=== PATIENT | female | born 1930 | race Caucasian/White ===

== ENCOUNTER 2017-04-05 10:12 | Inpatient (IN) | payer OTHER ==
[2017-04-05] VITALS (20 sets, daily range): BP systolic 91–138; BP diastolic 42–79; PULSE 56–76; TEMP 36.8–37.5; O2SAT 89–98; Ht 162.6 cm; Wt 73.0 kg
[~2017-04-05] VITALS: Ht 162.6 cm; Wt 73.0 kg
[2017-04-05] MEDS: PIPERACILLIN/TAZOBACTAM 4.5 GM/100ML D5W IV STA ×2 (10:14→11:01)
[2017-04-05] MEDS ORDERED: VANCOMYCIN 1GM/270ML NSS IV STA (10:14)
[2017-04-05] MEDS ORDERED: ALBUT/IPRATROP 3MG/0.5MG NEB 3 ML VIAL INH ONE (10:15)
[2017-04-05] MEDS ORDERED: MELATAB2 PO (10:27)
[2017-04-05] MEDS ORDERED: SIMV20TA2 PO (10:27)
[2017-04-05] MEDS ORDERED: ATEN-171 PO (10:27)
[2017-04-05] MEDS ORDERED: DOCU100C31 PO (10:27)
[2017-04-05] MEDS ORDERED: RAMI10CA PO (10:27)
[2017-04-05] MEDS ORDERED: ASPI81TA28 PO (10:27)
[2017-04-05] MEDS ORDERED: CALC-388 PO (10:27)
[2017-04-05] MEDS ORDERED: SENN-61 PO (10:27)
[2017-04-05] MEDS ORDERED: PRLSR20 PO (10:27)
[2017-04-05] MEDS ORDERED: CHOL400T5 PO (10:27)
[2017-04-05] MEDS ORDERED: ROPI4TAB3 PO (10:27)
[2017-04-05] MEDS ORDERED: COEN150C PO (10:27)
--- NOTE | 2017-04-05 10:39 | EMERGENCY ROOM VISIT NOTE ---
History Report prepared by Alan: Cristiana Multani Under the Supervision of: Dr. Freddie Melvin M.D. 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 The patient was brought to the ED by ambulance. Per EMS she was diagnosed with pneumonia 2 weeks ago and was placed on antibiotics by her PCP, Dr. Fu. She recently finished these antibiotics. This morning the patient was at home with , and she was very short of breath. They called the ambulance. EMS initially gave the patient a DuoNeb and started a second DuoNeb, but the patient had no improvement of her symptoms. Her O2 saturation was 80% and paramedics state that her fingers were blue. They placed the patient on CPAP and gave 125 mg of solu-Medrol IM. The patient's O2 saturation improved and is now 94% on CPAP. 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 A total of 10 systems reviewed and were otherwise negative. Past Medical & Surgical Medical Problems: (1) HX: breast cancer (2) Hypertension (3) Pneumonia (4) Sepsis Surgical Problems: (1) H/O bilateral mastectomy Family History Non-pertinent due to advanced age. Social History Smoking Status: Unknown if Ever Smoked Marital Status: Housing Status: lives with significant other Occupation Status: unemployed Current/Historical Medications Scheduled Aspirin (Aspirin Ec), 81 MG PO DAILY Atenolol/Chlorthalidone (Tenoretic 50 Mg/25 Mg), 1 TAB PO DAILY Calcium Carbonate-Vitamin D (Calcium + D3 600-200 mg-Unit), 1 TAB PO DAILY Cholecalciferol (Vitamin D), 400 MG PO DAILY Coenzyme Q10 (Ubidecarenone) (Co Q-10), 300 MG PO DAILY Docusate Sodium (Docusate Sodium), 100 MG PO BID Melatonin (Melatonin Maximum Strengt), 10 MG PO HS Omeprazole (Prilosec), 20 MG PO DAILY Ramipril (Ramipril), 10 MG PO DAILY Ropinirole (Requip), 4 MG PO TID Senna (Senokot), 2 TAB PO HS Simvastatin (Zocor), 20 MG PO QPM Allergies Coded Allergies: No Known Allergies (Verified , 04/05/17) Physical Exam Vital Signs Date Time Temp Pulse Resp B/P (MAP) Pulse Ox O2 Delivery O2 Flow Rate FiO2 04/05/17 11:28 83 39 75 04/05/17 11:25 38.2 04/05/17 11:23 108/75 04/05/17 11:22 81 36 69 04/05/17 11:17 73 35 97 04/05/17 11:12 79 31 92 04/05/17 11:07 75 33 93 04/05/17 11:02 62 27 82 04/05/17 10:57 65 37 04/05/17 10:52 67 31 84 04/05/17 10:47 52 29 93 04/05/17 10:42 52 29 59/38 93 04/05/17 10:37 56 92 100 04/05/17 10:37 46 24 85 04/05/17 10:36 56 34 92 BiPAP/CPAP 100 04/05/17 10:36 57/37 04/05/17 10:32 46 33 93 04/05/17 10:27 60 34 04/05/17 10:24 75/51 04/05/17 10:22 63 04/05/17 10:20 60 20 75/51 90 CPAP 100 04/05/17 10:20 90 CPAP 100 04/05/17 10:20 CPAP Physical Exam GENERAL: Patient is a healthy-appearing well-nourished 87 year old female. HEAD: Normocephalic atraumatic EYES: Ocular movements intact pupils equal and react to light OROPHARYNX mucous membranes are moist no exudates present no erythema or edema present NECK: Supple no nuchal rigidity CHEST: Good equal expansion LUNGS: Clear and equal to auscultation CARDIAC: Normal S1 and S2 ABDOMEN: Soft nontender no guarding BACK: No CVA tenderness EXTREMITIES: No pain upon palpation normal muscle strength in all groups no clubbing cyanosis or edema NEURO: Patient is following commands is answering questions appropriately. Alert and oriented x3 Cranial Nerves 2-12 grossly intact Medical Decision & Procedures ER Provider Diagnostic Interpretation: Radiology results as stated below per my review and radiologist interpretation: CHEST ONE VIEW PORTABLE CLINICAL HISTORY: Sepsis dyspnea COMPARISON STUDY: No previous studies for comparison. FINDINGS: Infiltrative process involving the right lower lobe. Minimal infiltrative change left lower lobe. Upper lungs are considered clear. Pleural reactive change of the pulmonary apices most likely chronic. IMPRESSION: 1. Right lower lobe infiltrate. 2. Minimal left lower lobe infiltrate. Electronically signed by: Peng Menard M.D. 04/05/2017 10:36 AM Dictated Date/Time: 04/05/2017 10:33 AM Laboratory Results 04/05/17 10:55 Red Blood Count 3.88, Mean Corpuscular Volume 80.2, Mean Corpuscular Hemoglobin 25.8, Mean Corpuscular Hemoglobin Concent 32.2, Mean Platelet Volume 10.3, Neutrophils (%) (Auto) 69.2, Lymphocytes (%) (Auto) 28.2, Monocytes (%) (Auto) 1.7, Eosinophils (%) (Auto) 0.9, Basophils (%) (Auto) 0.0, Neutrophils # (Auto) 1.62, Lymphocytes # (Auto) 0.66, Monocytes # (Auto) 0.04, Eosinophils # (Auto) 0.02, Basophils # (Auto) 0.00 04/05/17 10:55 Test 04/05/17 10:55 04/05/17 11:09 White Blood Count 2.34 K/uL (4.8-10.8) Red Blood Count 3.88 M/uL (4.2-5.4) Hemoglobin 10.0 g/dL (12.0-16.0) Hematocrit 31.1 % (37-47) Mean Corpuscular Volume 80.2 fL (80-100) Mean Corpuscular Hemoglobin 25.8 pg (25-34) Mean Corpuscular Hemoglobin Concent 32.2 g/dl (32-36) Platelet Count 171 K/uL (130-400) Mean Platelet Volume 10.3 fL (7.4-10.4) Neutrophils (%) (Auto) 69.2 % Lymphocytes (%) (Auto) 28.2 % Monocytes (%) (Auto) 1.7 % Eosinophils (%) (Auto) 0.9 % Basophils (%) (Auto) 0.0 % Neutrophils # (Auto) 1.62 K/uL (1.4-6.5) Lymphocytes # (Auto) 0.66 K/uL (1.2-3.4) Monocytes # (Auto) 0.04 K/uL (0.11-0.59) Eosinophils # (Auto) 0.02 K/uL (0-0.5) Basophils # (Auto) 0.00 K/uL (0-0.2) RDW Standard Deviation 47.6 fL (36.4-46.3) RDW Coefficient of Variation 16.1 % (11.5-14.5) Immature Granulocyte % (Auto) 0.0 % Immature Granulocyte # (Auto) 0.00 K/uL (0.00-0.02) Prothrombin Time 14.3 SECONDS (9.0-12.0) Prothromb Time International Ratio 1.3 (0.9-1.1) Activated Partial Thromboplast Time 32.1 SECONDS (21.0-31.0) Partial Thromboplastin Ratio 1.2 Anion Gap 15.0 mmol/L (3-11) Est Creatinine Clear Calc Drug Dose 12.5 ml/min Estimated GFR () 14.5 Estimated GFR (Non- 12.5 BUN/Creatinine Ratio 16.8 (10-20) Calcium Level 8.7 mg/dl (8.5-10.1) Total Bilirubin 0.4 mg/dl (0.2-1) Aspartate Amino Transf (AST/SGOT) 21 U/L (15-37) Alanine Aminotransferase (ALT/SGPT) 20 U/L (12-78) Alkaline Phosphatase 44 U/L (45-117) Total Creatine Kinase 141 U/L (26-192) Creatine Kinase MB 3.5 ng/ml (0.5-3.6) Creatine Kinase MB Ratio 2.5 (0-3.0) Total Protein 5.7 gm/dl (6.4-8.2) Albumin 2.5 gm/dl (3.4-5.0) Globulin 3.2 gm/dl (2.5-4.0) Albumin/Globulin Ratio 0.8 (0.9-2) Arterial Blood pH 7.37 (7.35-7.45) Arterial Blood Partial Pressure CO2 27 mmHg (35-46) Arterial Blood Partial Pressure O2 92 mm/Hg (80-95) Arterial Blood HCO3 15 mmol/L (19-24) Arterial Blood Oxygen Saturation 95.7 % (90-95) Arterial Blood Base Excess -9.0 mEq/L (-9-1.8) Arterial Blood Gas Delivery 08/04 Kev Test POS (POS) Labs reviewed by ED physician. Medications Administered Medications (Trade) Dose Ordered Sig/[place] Route Start Time Stop Time Status Last Admin Dose Admin Piperacillin Sod/ Tazobactam Sod (Zosyn Iv) 4.5 gm ONE STAT IV 04/05/17 10:14 04/05/17 10:17 DC 04/05/17 10:14 4.5 GM Vancomycin HCl (Vancomycin 1gm/ 270ml Nss) 1 gm ONE STAT IV 04/05/17 10:14 04/05/17 10:17 DC 04/05/17 11:04 1 GM Levofloxacin (Levaquin / D5W) 750 mg ONE STAT IV 04/05/17 10:14 04/05/17 10:17 DC 04/05/17 10:58 750 MG Albuterol/ Ipratropium (Duoneb) 12 ml ONE ONCE INH 04/05/17 10:15 04/05/17 10:17 DC 04/05/17 10:35 12 ML Sodium Chloride 1,000 ml @ 999 mls/hr ONE ONCE IV 04/05/17 10:54 04/05/17 11:54 DC 04/05/17 10:55 999 MLS/HR Norepinephrine Bitartrate (Levophed Inj) 4 mg STK-MED ONCE .ROUTE 04/05/17 10:57 04/05/17 17:03 DC 04/05/17 11:04 4 MG Sodium Chloride 1,000 ml @ 999 mls/hr Q1H1M STAT IV 04/05/17 11:07 04/05/17 12:07 DC 04/05/17 11:07 999 MLS/HR Heparin Sodium (Porcine) (Heparin Sq 5000 Unit/0.5ml) 5,000 unit Q12H SQ 04/05/17 11:30 05/05/17 11:29 04/05/17 11:30 5,000 UNIT Procedure Central Venous Catheter Indication: Hypotension Catheter type: Arrow Triple Lumen Location: Right femoral area Verbal consent was obtained after the risks and benefits were explained, including but not limited to pneumothorax, hemothorax, vessel injury, bleeding, scarring, infection, pain, and bone/joint/nerve damage. At this time, the risks of the procedure are less than the risks of NOT performing the procedure. A time out was taken and the correct patient and site identified. The patient was placed in the supine position and the skin was prepped in the standard fashion with chlorhexidine and full sterile drapes applied. The proper landmarks were identified with ultrasound, anesthetized with 1% lidocaine without epinephrine, and the needle was inserted through the skin in the standard fashion. The needle was carefully advanced into blood vessel lumen under ultrasound guidance. The guidewire was placed uneventfully. The vessel is dilated and the catheter was placed. It was sutured into position. There was good blood return from all ports. The patient tolerated the procedure well and there were no complications. Post procedure x-ray was normal. ECG Indication: SOB/dyspnea Rate (beats per minute): 55 Rhythm: junctional Findings: PVC, no acute ischemic change, other (old septal infarct) Comparison ECG Date: no prior available ED Course 1007: Past medical records reviewed. The patient was evaluated in room B1. A complete history and physical examination was performed. A code sepsis was called prior to the patient's arrival in the ED. 1014: Levofloxacin 750 mg IV, Vancomycin HCl 1 gm IV, Zosyn 4.5 gm IV 1015: DuoNeb 12 ml INH 1029: I placed a central line. Please see the procedure note for further details. 1054: NSS 1000 ml @ 999 mls/hr IV 1107: 238 ml @ 999 mls/hr IV, NSS 1000 ml @ 999 mls/hr IV 1114: I reassessed the patient at this time. She is doing well. I discussed the results and treatment plan with the patient. I answered all pertaining questions that she had. She expressed understanding and verbalized agreement. 1121: I spoke with Dr. Bui. We discussed the patient's results and treatment plan. The patient will be evaluated by the [facility] for further management. She will be moved to the ICU. Medical Decision Etiologies such as infections, reactive airway disease, pneumonia, pneumothorax , COPD, CHF, cardiac ischemia, pulmonary embolism, musculoskeletal, gastrointestinal, as well as others were entertained. Medication Reconciliation: I attest that I have personally reviewed the patient' s current medication list. Blood Pressure Screening: The patient was found to be hypotensive and will be followed closely in the hospital. This is an 87-year-old female who presents emergency department hypoxic. The patient is requiring BiPAP upon arrival. Her creatinine is also grossly elevated though I do not have a previous creatinine to fall back on. Based on the patient's hypotension and tachycardia a sepsis alert was initiated. Due to the patient's bilateral meniscectomies a central line was placed in the right femoral area. She was also pancultured and started on antibiotics. I did discuss the case with both the ICU as well as the medicine service who agreed to admit the patient. Patient and family were in agreement with the treatment plan. Consults Time Called: 1118 Consulting Physician: Dr. Bui Returned Call: [address] Bui. We discussed the patient's results and treatment plan. The patient will be evaluated by the [facility] for further management. She will be moved to the ICU. Impression Primary Impression: Respiratory failure Critical Care I have personally spent greater than 90 minutes of critical care time in the direct management of this patient. This includes bedside care, interpretation of diagnostic studies, and testing, discussion with consultants, patient, and family members, and other required patient management activities. This 90 minutes is in excess of all separately billable procedures. Scribe Attestation The scribe's documentation has been prepared under my direction and personally reviewed by me in its entirety. I confirm that the note above accurately reflects all work, treatment, procedures, and medical decision making performed by me. Departure Information Dispostion Being Evaluated By Hospitalist Problem Qualifiers Primary Impression: Respiratory failure Chronicity: acute Respiratory failure complication: hypercapnia Qualified Codes: J96.02 - Acute respiratory failure with hypercapnia
[2017-04-05] MEDS ORDERED: SODIUM CHLORIDE 0.9% 1000ML 1,000 ML IV ONE (10:54)
[2017-04-05] MEDS ORDERED: NOREPINEPHRINE BITARTRATE 1 MG/ML 4 ML VIAL ONE (10:57)
[2017-04-05] MEDS: LEVAQUIN 750MG / 150ML D5W IV STA ×2 (10:58→11:05)
[2017-04-05] MEDS ORDERED: SODIUM CHLORIDE 0.9% 1000ML 1,000 ML IV STA (11:07)
[2017-04-05] MEDS ORDERED: SODIUM CHLORIDE 0.9% IV STA (11:07)
[2017-04-05 11:08] LABS: COMPLETE YES; EOS % 0.9 %; HEMATOCRIT 31.1 % (37-47); LYMPH % 28.2 %; LYMPH ABS # 0.66 K/uL (1.2-3.4); MEAN CELL VOLUME 80.2 fL (80-100); MEAN CORPUSCULAR HEMOGLOBIN 25.8 pg (25-34); MEAN CORPUSCULAR HGB CONC 32.2 g/dl (32-36); MEAN PLATELET VOLUME 10.3 fL (7.4-10.4); MONO % 1.7 %; NEUT % 69.2 %; PLATELET COUNT 171 K/uL (130-400); RED BLOOD COUNT 3.88 M/uL (4.2-5.4); WHITE BLOOD COUNT 2.34 K/uL (4.8-10.8)
[2017-04-05] MEDS ORDERED: NOREPINEPHRINE BIT INJ 4 MG in DEXTROSE 5% 250ML 250 ML IV ONE (11:14)
[2017-04-05 11:16] LABS: INR 1.3 (0.9-1.1); PARTIAL THROMBOPLASTIN RATIO 1.2; PROTHROMBIN TIME (PATIENT) 14.3 SECONDS (9.0-12.0)
[2017-04-05 11:20] LABS: ALLEN TEST POS (POS); ARTERIAL BLD GAS O2 SATURATION 95.7 % (90-95); ARTERIAL BLOOD GAS HCO3 15 mmol/L (19-24); ARTERIAL BLOOD GAS PO2 92 mm/Hg (80-95); ARTERIAL BLOOD GAS pH 7.37 (7.35-7.45)
[2017-04-05 11:25] LABS: BUN/CREATININE RATIO 16.8 (10-20); CALCIUM 8.7 mg/dl (8.5-10.1); CREATININE 3.2 mg/dl (0.60-1.20); POTASSIUM 3.7 mmol/L (3.5-5.1)
[2017-04-05] MEDS ORDERED: NOREPINEPHRINE BIT INJ 8 MG in DEXTROSE 5% 500ML 500 ML IV STA (11:25)
[2017-04-05] MEDS ORDERED: NOREPINEPHRINE BIT INJ 8 MG in DEXTROSE 5% 500ML 500 ML IV PRN (11:30)
[2017-04-05] MEDS ORDERED: NITROGLYCERIN 0.4 MG SL PER TAB CHARGE SL PRN (11:30)
[2017-04-05] MEDS: HEPARIN SOD 5000 UNIT/0.5 ML CARP SQ SCH ×2 (11:30→23:31)
[2017-04-05] MEDS ORDERED: ACETAMINOPHEN 325 MG TAB PO PRN (11:30)
[2017-04-05 11:36] LABS: ALB/GLOB RATIO 0.8 (0.9-2); CKMB/CK RATIO 2.5 (0-3.0)
--- NOTE | 2017-04-05 12:12 | Critical Care Consultation ---
Critical Care Consultation Date of Consultation: Apr 05, 2017. Attending Physician: Reason for Consultation: ICU Management - shortness of breath, sepsis History of Present Illness Mrs Goodman is an 87 yo F with history of breast cancer s/p mastectomy, who was recently on antibiotics over the last two weeks for a pneumonia as an outpatient. She was doing well at home, where she lives alone in [place]. Throughout the daytime yesterday she was out shopping in [place] with her sister and was slightly more fatigued than usual. Last night where she was coughing more than usual and had to sleep in her chair overnight. Her family came to visit her this morning and noticed she seemed more unwell so called the ambulance. In the ED, she was found to have a bilateral pneumonia. She was placed on BiPAP and saturating around 93%. She is able to speak full sentences. She denies any pain and feels her BiPAP mask is annoying. She wants to go to sleep. She clearly stated she would NOT want to be intubated nor would she want cardiac resuscitation. Past Medical/Surgical History Medical Problems: (1) HX: breast cancer (2) Hypertension (3) Pneumonia (4) Sepsis Surgical Problems: (1) H/O bilateral mastectomy Family History No pertinent FHx Social History Smoking Status: Unknown if Ever Smoked Marital Status: ( ) Housing Status: lives alone Occupation Status: unemployed Allergies Coded Allergies: No Known Allergies (Verified , 04/05/17) Home Medications Scheduled Aspirin (Aspirin Ec), 81 MG PO DAILY Atenolol/Chlorthalidone (Tenoretic 50 Mg/25 Mg), 1 TAB PO DAILY Calcium Carbonate-Vitamin D (Calcium + D3 600-200 mg-Unit), 1 TAB PO DAILY Cholecalciferol (Vitamin D), 400 MG PO DAILY Coenzyme Q10 (Ubidecarenone) (Co Q-10), 300 MG PO DAILY Docusate Sodium (Docusate Sodium), 100 MG PO BID Melatonin (Melatonin Maximum Strengt), 10 MG PO HS Omeprazole (Prilosec), 20 MG PO DAILY Ramipril (Ramipril), 10 MG PO DAILY Ropinirole (Requip), 4 MG PO TID Senna (Senokot), 2 TAB PO HS Simvastatin (Zocor), 20 MG PO QPM Current Inpatient Medications Current Inpatient Medications Medications (Trade) Dose Ordered Sig/[place] Route Start Time Stop Time Status Last Admin Dose Admin Norepinephrine Bitartrate 8 mg/ Dextrose 508 ml @ 0 mls/hr Q0M PRN IV 04/05/17 11:30 05/05/17 11:29 Aspirin (Ecotrin Tab) 81 mg DAILY PO 04/06/17 09:00 05/06/17 08:59 UNV Cholecalciferol (Vitamin D Tab) 400 inter.unit DAILY PO 04/06/17 09:00 05/06/17 08:59 UNV Calcium/Vitamin D (Caltrate Plus Tab) 1 tab DAILY PO 04/06/17 09:00 05/06/17 08:59 UNV Heparin Sodium (Porcine) (Heparin Sq 5000 Unit/0.5ml) 5,000 unit Q12H SQ 04/05/17 11:30 05/05/17 11:29 UNV Sodium Chloride 1,000 ml @ 100 mls/hr Q10H IV 04/05/17 11:25 05/05/17 11:24 UNV Acetaminophen (Tylenol Tab) 650 mg Q4H PRN PO 04/05/17 11:30 05/05/17 11:29 Nitroglycerin (Nitrostat Tab) 0.4 mg UD PRN SL 04/05/17 11:30 05/05/17 11:29 Pantoprazole Sodium 40 mg/ Syringe 10 ml @ 5 mls/min DAILY IV 04/06/17 09:00 05/06/17 08:59 UNV Norepinephrine Bitartrate 8 mg/ Dextrose 508 ml @ 0 mls/hr Q0M STAT IV 04/05/17 11:25 04/05/17 11:26 UNV Review of Systems Constitutional: + fever, + weakness, + fatigue, No chills, No sweats Eyes: No worsening of vision ENT: No hearing loss Respiratory: + cough, + shortness of breath, + dyspnea on exertion, + dyspnea at rest, No sputum, No wheezing, No hemoptysis Cardiovascular: No chest pain Abdomen: No pain, No nausea, No vomiting, No diarrhea, No constipation Musculoskeletal: No joint pain, No muscle pain, No calf pain Genitourinary - Female: No dysuria Neurologic: No memory loss Psychiatric: No depression symptoms Endocrine: No fatigue Hematologic / Lymphatic: No abnormal bleeding/bruising Integumentary: No rash Allergic / Immunologic: No environmental allergies Physical Exam Date Time Temp Pulse Resp B/P (MAP) Pulse Ox O2 Delivery O2 Flow Rate FiO2 04/05/17 12:03 84 29 92/77 04/05/17 11:58 87 36 04/05/17 11:53 92 28 128/95 04/05/17 11:48 88 34 04/05/17 11:43 85 32 120/74 04/05/17 11:40 62/40 04/05/17 11:38 88 34 93 04/05/17 11:33 82 31 92 04/05/17 11:28 83 39 75 04/05/17 11:25 38.2 04/05/17 11:23 108/75 04/05/17 11:22 81 36 69 04/05/17 11:17 73 35 97 04/05/17 11:12 79 31 92 04/05/17 11:07 75 33 93 04/05/17 11:02 62 27 82 04/05/17 10:57 65 37 04/05/17 10:52 67 31 84 04/05/17 10:47 52 29 93 04/05/17 10:42 52 29 59/38 93 04/05/17 10:37 56 92 100 04/05/17 10:37 46 24 85 04/05/17 10:36 56 34 92 BiPAP/CPAP 100 04/05/17 10:36 57/37 04/05/17 10:32 46 33 93 04/05/17 10:27 60 34 04/05/17 10:24 75/51 04/05/17 10:22 63 04/05/17 10:20 60 20 75/51 90 CPAP 100 04/05/17 10:20 90 CPAP 100 04/05/17 10:20 CPAP GENERAL: Awake, alert, well-appearing, in mild distress, wearing BiPAP mask HENT: Normocephalic, atraumatic. Oropharynx unremarkable. EYES: Normal conjunctiva. Sclera non-icteric. NECK: Supple. No nuchal rigidity. FROM. No JVD. RESPIRATORY: Unable to take deep breaths, decreased breath sounds noted at bases CARDIAC: Regular rate, normal rhythm. Extremities warm and well perfused. Pulses equal. ABDOMEN: Soft, non-distended. No tenderness to palpation. No rebound or guarding. No masses. RECTAL: Deferred. MUSCULOSKELETAL: Chest examination reveals no tenderness. LOWER EXTREMITIES: Calves are equal size bilaterally and non-tender. No edema. No discoloration. NEURO: Normal sensorium. No sensory or motor deficits noted. SKIN: No rash or jaundice noted. Laboratory Results Last 24 Hours Test 04/05/17 10:55 04/05/17 11:09 04/05/17 11:34 04/05/17 11:53 White Blood Count 2.34 K/uL Red Blood Count 3.88 M/uL Hemoglobin 10.0 g/dL Hematocrit 31.1 % Mean Corpuscular Volume 80.2 fL Mean Corpuscular Hemoglobin 25.8 pg Mean Corpuscular Hemoglobin Concent 32.2 g/dl Platelet Count 171 K/uL Mean Platelet Volume 10.3 fL Neutrophils (%) (Auto) 69.2 % Lymphocytes (%) (Auto) 28.2 % Monocytes (%) (Auto) 1.7 % Eosinophils (%) (Auto) 0.9 % Basophils (%) (Auto) 0.0 % Neutrophils # (Auto) 1.62 K/uL Lymphocytes # (Auto) 0.66 K/uL Monocytes # (Auto) 0.04 K/uL Eosinophils # (Auto) 0.02 K/uL Basophils # (Auto) 0.00 K/uL RDW Standard Deviation 47.6 fL RDW Coefficient of Variation 16.1 % Immature Granulocyte % (Auto) 0.0 % Immature Granulocyte # (Auto) 0.00 K/uL Prothrombin Time 14.3 SECONDS Prothromb Time International Ratio 1.3 Activated Partial Thromboplast Time 32.1 SECONDS Partial Thromboplastin Ratio 1.2 Sodium Level 141 mmol/L Potassium Level 3.7 mmol/L Chloride Level 107 mmol/L Carbon Dioxide Level 19 mmol/L Anion Gap 15.0 mmol/L Blood Urea Nitrogen 54 mg/dl Creatinine 3.20 mg/dl Est Creatinine Clear Calc Drug Dose 12.5 ml/min Estimated GFR () 14.5 Estimated GFR (Non- 12.5 BUN/Creatinine Ratio 16.8 Random Glucose 93 mg/dl Calcium Level 8.7 mg/dl Total Bilirubin 0.4 mg/dl Aspartate Amino Transf (AST/SGOT) 21 U/L Alanine Aminotransferase (ALT/SGPT) 20 U/L Alkaline Phosphatase 44 U/L Total Creatine Kinase 141 U/L Creatine Kinase MB 3.5 ng/ml Creatine Kinase MB Ratio 2.5 Troponin I 0.279 ng/ml Total Protein 5.7 gm/dl Albumin 2.5 gm/dl Globulin 3.2 gm/dl Albumin/Globulin Ratio 0.8 Arterial Blood pH 7.37 Arterial Blood Partial Pressure CO2 27 mmHg Arterial Blood Partial Pressure O2 92 mm/Hg Arterial Blood HCO3 15 mmol/L Arterial Blood Oxygen Saturation 95.7 % Arterial Blood Base Excess -9.0 mEq/L Arterial Blood Gas Delivery 08/04 Kev Test POS Bedside Lactic Acid Venous 5.50 mmol/L Test 04/05/17 11:54 Diagnostic Results CHEST ONE VIEW PORTABLE CLINICAL HISTORY: Sepsis dyspnea COMPARISON STUDY: No previous studies for comparison. FINDINGS: Infiltrative process involving the right lower lobe. Minimal infiltrative change left lower lobe. Upper lungs are considered clear. Pleural reactive change of the pulmonary apices most likely chronic. IMPRESSION: 1. Right lower lobe infiltrate. 2. Minimal left lower lobe infiltrate. Assessment & Plan 87 yo F with sepsis from bilateral pneumonia, with failed outpatient treatment. NEURO: Mentating well, not on any sedatives CVS: Is on Levophed, will change to phenylephrine since she has aortic stenosis, and increase this slowly Femoral line placed by Dr Melvin 04/05/17 - we will change this to a PICC line, consent obtained Trop 0.279, will continue to trend q6h Echo ordered GI: Advance diet as tolerated once respiratory status improves RENAL: Had IV fluid resuscitation on arrival per sepsis protocol Insert ríos, monitor I&Os Normosol 100mL/hour RESP: Not comfortable with BiPAP - will change to face mask, aim for sats > 92% Abx started after cultures obtained Obtain sputum culture if possible Will check procalcitonin ID: Blood cx obtained Urine culture pending Started on Vanc, Zosyn, and Levaquin in ED - Will change Zosyn to Rocephin ENDO: No hx of DM BSG q6h CODE STATUS: DNR/DNI Resident Physician Supervision Note: Dr. Jensen was resident physician during care of patient. I separately evaluated patient and did history and exam. I discussed the case with the resident and generally agree with the findings and plan. Initial limited beside ECHO by me revealed TAPSE 21, LVOT: 1.9, concern for hypoactive left ventricle, started vasopressors. Called by cardiology, concerned for global depressed LV function, preserved RV function and possible aortic calcification and probably mild stenosis, cannot completely exclude vegetation, however, less likely. Changed to phenylephrine for increased PVR and reflex bradycardia. ABX for pneumonia. Stopped zosyn and change to rocephin in setting of IRA and no need for double pseudomonas coverage. Had discussion with patient, she does not want to under go heroic measure of CPR or intubation. I have personally spent 65 minutes of critical care time in the direct management of this patient. This is a life/limb threatening event. This includes time spent evaluating patient, direct bedside care, chart review, placing orders, interpretation of diagnostic studies, discussion with consultants, patient, and family members, as well as other required patient management activities. This time is exclusive of all separately billable procedures, and teaching time and separate from and in addition to any other critical care service time. Documented By: Aldo Montes De Oca DO Resident Tracking Resident Involvement: Resident Care Provided Care Provided: Adult Hospital Medicine
--- NOTE | 2017-04-05 12:15 | History and Physical ---
History & Physical Date & Time of Service: Apr 05, 2017 at 11:55 Chief Complaint: Respiratory Distress Primary Care Physician: Minh Zhang M.D. History of Present Illness Source: patient, family (nephew) The patient is a 87 year old female with PMH as below, who presents to the Emergency Room with c/o worsening cough/SOB x 24 hours. Patient at her baseline- lives alone, does ADLs independently, walks without assistive device, drives. Was diagnosed with pneumonia 1 month ago, for which she was treated with antibiotics x 10 days. Symptoms did not improve much, especially cough-unable to bring up sputum. Yesterday she was out with her cousin for shopping, when she felt excessive shaking and tired. Had to come back home -didnt eat much, had a difficult night. Today AM family went to visit her- was not doing well- SOB +, thus brought her to ER. Did have some chest pain yesterday. No leg swelling, fever documented, abdominal pain, vomiting, diarrhea, nausea, burning mictuirtion, urinary frequency, headaches, localized weakness. In ED, she was in respiratory distress. EMS gave duoneb x 2 with no improvement in SOB. SaO2 80% and her fingers were blue per EMS. Placed on CPAP, received IV solumedrol 125 mg IM. Currently on my evaluation, BIPAP + 93% SaO2, awake and able to communicate. BP 75/51, Pulse - 81, Temp 38.2, Lactic acid 5.5, Anion gap 15, Creatinine 3.20, Trop 0.2. CXR- B/L Right > left lower lobe pneumonia. Receiving 2nd litre of IV NS, on IV Levophed. Received IV Zosyn, receiving IV Vancomycin, Levofloxacin. Will admit her to ICU for sepsis/septic shock secondary to B/L Pneumonia . Past Medical/Surgical History Medical Problems: (1) HX: breast cancer Status: Resolved (2) Hypertension Status: Chronic Surgical Problems: (1) H/O bilateral mastectomy Status: Resolved Social History Smoking Status: Unknown if Ever Smoked Marital Status: Occupational Status: unemployed Multi-Drug Resistant Organisms History of MDRO: No Allergies Coded Allergies: No Known Allergies (Verified , 04/05/17) Home Medications Scheduled Aspirin (Aspirin Ec), 81 MG PO DAILY Atenolol/Chlorthalidone (Tenoretic 50 Mg/25 Mg), 1 TAB PO DAILY Calcium Carbonate-Vitamin D (Calcium + D3 600-200 mg-Unit), 1 TAB PO DAILY Cholecalciferol (Vitamin D), 400 MG PO DAILY Coenzyme Q10 (Ubidecarenone) (Co Q-10), 300 MG PO DAILY Docusate Sodium (Docusate Sodium), 100 MG PO BID Melatonin (Melatonin Maximum Strengt), 10 MG PO HS Omeprazole (Prilosec), 20 MG PO DAILY Ramipril (Ramipril), 10 MG PO DAILY Ropinirole (Requip), 4 MG PO TID Senna (Senokot), 2 TAB PO HS Simvastatin (Zocor), 20 MG PO QPM Review of Systems Constitutional: + fever, + chills, + fatigue Eyes: No worsening of vision, No eye pain ENT: No hearing loss, No nasal symptoms Respiratory: + cough, + shortness of breath, + dyspnea at rest, No wheezing, No hemoptysis Cardiovascular: No chest pain, No edema, No palpitations Abdomen: No pain, No nausea, No vomiting, No diarrhea, No constipation, No GI bleeding Genitourinary - Female: No dysuria, No urinary frequency, No hematuria Neurologic: No paralysis, No weakness Endocrine: + fatigue Integumentary: No rash Physical Exam Vital Signs Date Time Temp Pulse Resp B/P (MAP) Pulse Ox O2 Delivery O2 Flow Rate FiO2 04/05/17 11:25 38.2 04/05/17 11:23 108/75 04/05/17 11:22 81 36 69 04/05/17 11:17 73 35 97 04/05/17 11:12 79 31 92 04/05/17 11:07 75 33 93 04/05/17 11:02 62 27 82 04/05/17 10:57 65 37 04/05/17 10:52 67 31 84 04/05/17 10:47 52 29 93 04/05/17 10:42 52 29 59/38 93 04/05/17 10:37 56 92 100 04/05/17 10:37 46 24 85 04/05/17 10:36 56 34 92 BiPAP/CPAP 100 04/05/17 10:36 57/37 04/05/17 10:32 46 33 93 04/05/17 10:27 60 34 04/05/17 10:24 75/51 04/05/17 10:22 63 04/05/17 10:20 60 20 75/51 90 CPAP 100 04/05/17 10:20 90 CPAP 100 04/05/17 10:20 CPAP General Appearance: + mild distress (on BIPAP) Head: normocephalic, atraumatic Eyes: PERRL ENT: hearing grossly normal Neck: no JVD Respiratory/Chest: chest non-tender, no accessory muscle use, + respiratory distress, + decreased breath sounds, + rhonchi, + pertinent finding (s/p mastectomy) Cardiovascular: regular rate, rhythm, no edema, no murmur Abdomen/GI: normal bowel sounds, non tender, soft, no pulsatile mass Extremities/Musculoskelatal: normal inspection, no pedal edema Neurologic/Psych: no motor/sensory deficits, + pertinent finding (awake, oriented x 2, ) Diagnostics Laboratory Results Results Past 24 Hours Test 04/05/17 10:55 04/05/17 11:09 04/05/17 11:31 04/05/17 11:34 Range/Units White Blood Count 2.34 4.8-10.8 K/uL Red Blood Count 3.88 4.2-5.4 M/uL Hemoglobin 10.0 12.0-16.0 g/dL Hematocrit 31.1 37-47 % Mean Corpuscular Volume 80.2 80-100 fL Mean Corpuscular Hemoglobin 25.8 25-34 pg Mean Corpuscular Hemoglobin Concent 32.2 32-36 g/dl Platelet Count 171 130-400 K/uL Mean Platelet Volume 10.3 7.4-10.4 fL Neutrophils (%) (Auto) 69.2 % Lymphocytes (%) (Auto) 28.2 % Monocytes (%) (Auto) 1.7 % Eosinophils (%) (Auto) 0.9 % Basophils (%) (Auto) 0.0 % Neutrophils # (Auto) 1.62 1.4-6.5 K/uL Lymphocytes # (Auto) 0.66 1.2-3.4 K/uL Monocytes # (Auto) 0.04 0.11-0.59 K/uL Eosinophils # (Auto) 0.02 0-0.5 K/uL Basophils # (Auto) 0.00 0-0.2 K/uL RDW Standard Deviation 47.6 36.4-46.3 fL RDW Coefficient of Variation 16.1 11.5-14.5 % Immature Granulocyte % (Auto) 0.0 % Immature Granulocyte # (Auto) 0.00 0.00-0.02 K/uL Prothrombin Time 14.3 9.0-12.0 SECONDS Prothromb Time International Ratio 1.3 0.9-1.1 Activated Partial Thromboplast Time 32.1 21.0-31.0 SECONDS Partial Thromboplastin Ratio 1.2 Sodium Level 141 136-145 mmol/L Potassium Level 3.7 3.5-5.1 mmol/L Chloride Level 107 98-107 mmol/L Carbon Dioxide Level 19 21-32 mmol/L Anion Gap 15.0 3-11 mmol/L Blood Urea Nitrogen 54 7-18 mg/dl Creatinine 3.20 0.60-1.20 mg/dl Est Creatinine Clear Calc Drug Dose 12.5 ml/min Estimated GFR () 14.5 Estimated GFR (Non- 12.5 BUN/Creatinine Ratio 16.8 10-20 Random Glucose 93 70-99 mg/dl Calcium Level 8.7 8.5-10.1 mg/dl Total Bilirubin 0.4 0.2-1 mg/dl Aspartate Amino Transf (AST/SGOT) 21 15-37 U/L Alanine Aminotransferase (ALT/SGPT) 20 12-78 U/L Alkaline Phosphatase 44 45-117 U/L Total Creatine Kinase 141 26-192 U/L Creatine Kinase MB 3.5 0.5-3.6 ng/ml Creatine Kinase MB Ratio 2.5 0-3.0 Troponin I 0.279 0-0.045 ng/ml Total Protein 5.7 6.4-8.2 gm/dl Albumin 2.5 3.4-5.0 gm/dl Globulin 3.2 2.5-4.0 gm/dl Albumin/Globulin Ratio 0.8 0.9-2 Arterial Blood pH 7.37 7.35-7.45 Arterial Blood Partial Pressure CO2 27 35-46 mmHg Arterial Blood Partial Pressure O2 92 80-95 mm/Hg Arterial Blood HCO3 15 19-24 mmol/L Arterial Blood Oxygen Saturation 95.7 90-95 % Arterial Blood Base Excess -9.0 -9-1.8 mEq/L Arterial Blood Gas Delivery 10/5 Kev Test POS POS Bedside Lactic Acid Venous 5.50 0.90-1.70 mmol/L Microbiology Results 04/05/17 Blood Culture, Received Pending 04/05/17 Blood Culture, Received Pending Diagnostic Radiology CXR on 04/05/17 IMPRESSION: 1. Right lower lobe infiltrate. 2. Minimal left lower lobe infiltrate. EKG- Junctional rhythm with PVCs Impression Assessment and Plan Patient is a 87 year old F, lives independently, drives, able to take care of herself was diagnosed with pneumonia 1 month ago. Treated with antibiotic course x 10 days, but symptoms did not improve much. Was relatively still doing okay as was out shopping day before admission--> SOB worsened, had chills, worsening cough but unable to bring up sputum. Brought to ER, found to be hypotensive, respiratory distress on BIPAP, CXR- B/L pneumonia. Admitted for sepsis/septic shock secondary to B/L Pneumonia ASSESSMENT/PLAN: SEPSIS/SEPTIC SHOCK SECONDARY TO B/L (RT > LT) PNEUMONIA -Presented with hypotension BP in 70s, fever, respiratory distress requiring BIPAP, Lactic acid 5.5. Was treated with antibiotics x 10 days 2-3 weeks ago at PCP office, but symptoms not improving much. -IV NS- 2nd litre going on in ER. Continue at 100 cc/hour -IV Levophed- maintain MAP - > 65 -S/P IV Zosyn, Levofloxacin, Vancomycin in ED. Continue with these antibiotics -Work up- Blood culture, MRSA swab, Sputum culture, UA, urine culture -Account Manager on board -Will re evaluate with in 6 hours ACUTE HYPOXIC RESPIRATORY FAILURE Secondary to B/L pneumonia -Sao2 80% per EMS. -On BIPAP now -Monitor in ICU. Account Manager on board. IRA VS IRA ON CKD Baseline: not in EMR. Presented with creatinine of 3.20 -Likely secondary to sepsis -IVF -Monitor ELEVATED TROPONIN Likely demand ischemia in setting of Sepsis/septic shock/IRA -Trop 0.2, EKG- junctional rhythm with PVCS -Trend troponin , EKG , Echocardiogram HTN- Now in septic shock Hold home medication- Atenolol/Chlorthalidone, Ramipril -On levophed -Monitor HX OF BREAST CARCINOMA S/P MASTECTOMY In remission DYSLIPIDEMIA Hold Statin CODE STATUS DNR/DNI per patient DISPOSITION ICU care Account Manager evaluated patient as well. Discussed with Account Manager Discussed with family by bedside. Nephew POA Level of Care Critical Care Advanced Directives Existing Power of Bistro Server: Yes Resuscitation Status DO NOT RESUSCITATE VTE Prophylaxis VTE Risk Assessment Done? Y/N: Yes Risk Level: High Given or contraindicated: Unfractionated heparin SQ Social Service Consult >80 yr.& Lives Alone
[2017-04-05] MEDS ORDERED: SODIUM CHLORIDE 0.9% 1000ML 1,000 ML IV SCH (12:30)
[2017-04-05 12:35] LABS: URINE APPEARANCE CLOUDY (CLEAR); URINE BILIRUBIN NEG (NEG); URINE COLOR DK YELLOW; URINE EPITHELIAL CELL AUTO >30 /lpf (0-5); URINE NITRITE NEG (NEG); URINE SPECIFIC GRAVITY 1.023 (1.000-1.030); UROBILINOGEN NEG (NEG); ZZURINE CULT IF INDIC CATH NO
[2017-04-05] MEDS ORDERED: VANCOMYCIN CONSULT ACTIVE PRN (12:36)
[2017-04-05 12:44] LABS: MANUAL MICROSCOPIC REQUIRED? NO; REVIEW REQ? YES
[2017-04-05] MEDS ORDERED: LEVOFLOXACIN CONSULT ACTIVE PRN (12:45)
[2017-04-05] MEDS ORDERED: PIPERACILL/TAZOBAC CONSULT ACTIVE PRN (12:45)
[2017-04-05] MEDS ORDERED: VANCOMYCIN INJ 500 MG in SODIUM CHLORIDE 0.9% 100ML 100 ML IV ONE (14:00)
[2017-04-05 14:12] LABS: INFLUENZA A PCR Neg for Influ A (NEG); INFLUENZA B PCR Neg for Influ B (NEG)
--- NOTE | 2017-04-05 14:25 | Pharmacy Progress Note ---
Pharmacy Antibiotic Consult Date of Service: Apr 05, 2017. Pharmacy Dosing Scope Pharmacy is consulted to initiate Vancomycin IV dosing therapy, order appropriate labs and adjust drug dose/frequency. Subjective The patient is a 87 year old female admitted on Apr 05, 2017 at 11:30. Objective Height (Feet): 5 Height (Inches): 4.00 Weight (Kilograms): 74.600 Lab Results (24hrs): Item Value Date Time White Blood Count 2.34 K/uL L 04/05/17 1055 Neutrophils # (Auto) 1.62 K/uL 04/05/17 1055 Creatinine 3.20 mg/dl H 04/05/17 1055 Est Creatinine Clear Calc Drug Dose 12.5 ml/min 04/05/17 1055 Lactic Acid Level 5.5 mmol/L *H 04/05/17 1153 Bedside Lactic Acid Venous 5.50 mmol/L H 04/05/17 1134 Item Value Date Time Urine Color DK YELLOW 04/05/17 1205 Urine Appearance CLOUDY 04/05/17 1205 Urine pH 5.0 04/05/17 1205 Urine Specific [place] 1.023 04/05/17 1205 Urine Protein TRACE H 04/05/17 1205 Urine Glucose (UA) NEG 04/05/17 1205 Urine Ketones NEG 04/05/17 1205 Urine Occult Blood NEG 04/05/17 1205 Urine Nitrite NEG 04/05/17 1205 Urine Bilirubin NEG 04/05/17 1205 Urine Urobilinogen NEG 04/05/17 1205 Urine Leukocyte Esterase NEG 04/05/17 1205 Urine WBC (Auto) 0 /hpf 04/05/17 1205 Urine RBC (Auto) 0-4 /hpf 04/05/17 1205 Urine Hyaline Casts (Auto) 0 /lpf 04/05/17 1205 Urine Epithelial Cells (Auto) >30 /lpf H 04/05/17 1205 Urine Bacteria (Auto) NEG 04/05/17 1205 Urine Pathogenic Casts /lpf 04/05/17 1205 Micro Results: Item Value Date Time MRSA DNA Surveillance Screen - Final Complete 04/05/17 1154 Nasal Specimen Negative for MRSA by DNA Probe Blood Culture Received 04/05/17 1055 Blood Pending Blood Culture Received 04/05/17 1021 Blood Pending Item Value Date Time Influenza Type A Antigen Neg for Influ A 04/05/17 1154 Influenza Type B Antigen Neg for Influ B 04/05/17 1154 Assessment & Plan ASSESSMENT: * Patient is an 87yo female admitted in respiratory distress. She was diagnosed with pna ~1 month ago and recently completed a 10-day course of antibiotics (unclear which abx). * On arrival: * WBC 2.34 (L), Temp 38.2, BP 75/51 --> 57/37, HR 60, RR 34, SCr 3.2, Lactic acid 5.5 * Patient received fluid boluses in ED and was initiated on Levophed for hypotension * Admitted to ICU for sepsis/septic shock / B/L pna PLAN: * Vancomycin * Loading dose: Vancomycin 1000 mg IV x1 dose in ED, plus additional 500mg IV x1 dose after admission (total of ~20mg/kg) * d/t degree of IRA, will not order further doses until vanc level evaluated in the am * Goal trough level estimate: between 15 - 20 mcg/mL for sepsis/pna. * Random level has been ordered for: 04/06/17 with AM labs * Zosyn * Zosyn 4.5gm IV x1 dose in ED (given over 30 minutes) then: * Zosyn 4.5gm IV q12h, extended 4-hr infusion -- for patients with CrCl less than 20mL/min; started ~8hr after initial dose given -- will adjust as renal function improves * Levaquin * Levaquin 750mg IV x1 dose in ED, then * Levaquin 500mg IV q48h, for CrCl 10-19mL/min -- will adjust as renal function improves Pharmacy will continue to follow and will adjust dose/frequency as necessary. Thank you
--- NOTE | 2017-04-05 15:53 | Progress Note ---
Progress Note Post Crystalloid Evaluation Date: Apr 05, 2017 Time: 15:50 Subjective Patient is doing better. More awake, alert, still on BIPAP. SOB has improved. Cough + No chest pain, fever, chills. BP has been stable on Levophed, IVF. Physical Exam Vital Signs: Vital Signs Date Time Temp Pulse Resp B/P (MAP) Pulse Ox O2 Delivery O2 Flow Rate FiO2 04/05/17 12:40 37.5 73 22 119/60 (79) 98 BiPAP 100 Lungs: chest non-tender, no accessory muscle use, + decreased breath sounds, + rhonchi Heart: regular rate, rhythm, no JVD Peripheral Pulse: Normal Capillary Refill: Normal (less than 2 seconds) Skin: Pallor Assessment & Plan Presence of: Septic Shock Patient has overall improved, BP improved, but still on levophed. 1. Sepsis/septic shock secondary to pneumonia- Continue with IVF, IV levophed, IV antibiotics. Follow up lactic acid 2. Acute hypoxic respiratory failure, sec to above, still on BIPAP 3. IRA secondary to above 4. Elevated trop secondary to demand ischemia Continue with ICU monitoring
[2017-04-05] MEDS: ALBUT/IPRATROP 3MG/0.5MG NEB 3 ML VIAL INH SCH ×2 (16:01→19:05)
--- NOTE | 2017-04-05 16:41 | ECHOCARDIOGRAM REPORT ---
*NOTICE TO RECEIVING LIBERTARIAN AGENCY This information is strictly Confidential and protected under [place] law. [place] law prohibits you from making any further disclosure of this information unless further disclosure is expressly permitted by the written consent of the person to whom it pertains or is authorized by law. A general authorization for the release of medical or other information is not sufficient for this purpose. Hospital accepts no responsibility if the information is made available to any other person, INCLUDING THE PATIENT. Interpretation Summary * Name: EDILBERTO DUFF Study Date: 04/05/2017 03:16 PM BP: 119/60 mmHg * Patient Location: ED HR: 73 * : 1930 (M/d/yyyy) Gender: Female Height: 64 in * Age: 87 yrs Ethnicity: [place] Weight: 164 lb * Ordering Physician: Sydni Bui. * Performed By: Cira Mercado * * Reason For Study: SEPTIC SHOCK/ ELEVATED TROP * BSA: 1.8 m2 * The study was technically adequate. * -- Conclusions -- * There is no prior study available for comparison. * The left ventricle is normal in size. * There is moderate to severe global hypokinesis of the left ventricle. * The LV Ejection Fraction = 25-30%. * The right ventricle is normal in size and function. * The aortic valve is trileaflet. * Mild aortic regurgitation. * The non coronary cusp of the aortic valve is thickened and calcified with resultant decreased excursion. Appearance favors sclerosis/ calcification however the presence of a vegetation cannot be excluded. * Recommend clinical correlation regarding suspected source of sepsis. * Results were reviewed in person with Dr Montes De Oca on 04/05/17 4:45 pm. Procedure Details * A complete two-dimensional transthoracic echocardiogram was performed (2D, M-mode, Doppler and color flow Doppler). * There were technical limitations due to patient'ssupine positioning while on mechanical ventilation Left Ventricle * The left ventricle is normal in size. * There is mild concentric left ventricular hypertrophy. * Left ventricular systolic function is moderate to severely reduced. * Ejection Fraction = 25-30%. * There is moderate to severe global hypokinesis of the left ventricle. Right Ventricle * The right ventricle is normal in size and function. * The right ventricular systolic function is normal as assessed by tricuspid annular plane systolic excursion (TAPSE) (normal >1.5 cm). Atria * The left atrial size is normal. * Right atrial size is normal. * There is no evidence of atrial septal defect, but resolution does not allow assessment for a patent foramen ovale. Mitral Valve * The mitral valve is normal. * There is no mitral valve stenosis. * There is mild mitral regurgitation. Tricuspid Valve * The tricuspid valve is normal. * There is no tricuspid stenosis. * There is mild tricuspid regurgitation. * Doppler findings do not suggest pulmonary hypertension. Aortic Valve * The aortic valve is trileaflet. * Aortic valve sclerosis moderate, without significant aortic valvular stenosis. * The non coronary cusp of the aortic valve is thickened and calcified with resultant decreased excursion. Appearance favors sclerosis/ calcification however the presence of a vegetation cannot be excluded. * Aortic stenosis is absent. * Mild aortic regurgitation. Pulmonic Valve * The pulmonary valve is not well seen, but the Doppler examination is normal without significant regurgitation or stenosis. Great Vessels * The aortic root and proximal ascending aorta are normal sized. Pericardium/Pleural * There is no pericardial effusion. Great Vessels * Normal inferior vena cava diameter and respiratory variation suggests normal central venous pressure. Left Ventricular Diastolic Function * Grade I diastolic dysfunction, (abnormal relaxation pattern). MMode 2D Measurements and Calculations IVSd 1.2 cm IVSs 1.6 cm LVIDd 4.2 cm LVIDs 3.3 cm LVPWd 1.0 cm LVPWs 1.3 cm IVS/LVPW 1.2 FS 21.8 % EDV(Teich) 80.3 ml ESV(Teich) 44.6 ml EF(Teich) 44.5 % EDV(cubed) 76.2 ml ESV(cubed) 36.4 ml EF(cubed) 52.2 % % IVS thick 35.3 % % LVPW thick 33.0 % LV mass(C)d 158.5 grams LV mass(C)dI 88.2 grams/m\S\2 LV mass(C)s 174.1 grams LV mass(C)sI 96.8 grams/m\S\2 SV(Teich) 35.7 ml SI(Teich) 19.9 ml/m\S\2 SV(cubed) 39.8 ml SI(cubed) 22.1 ml/m\S\2 ACS 1.0 cm LA dimension 3.2 cm asc Aorta Diam 3.3 cm LVOT diam 1.7 cm LVOT area 2.2 cm\S\2 LVAd ap4 29.1 cm\S\2 LVLd ap4 8.2 cm EDV(MOD-sp4) 83.3 ml EDV(sp4-el) 87.8 ml LVAs ap4 18.8 cm\S\2 LVLs ap4 6.2 cm ESV(MOD-sp4) 46.2 ml ESV(sp4-el) 48.4 ml EF(MOD-sp4) 44.5 % EF(sp4-el) 44.9 % LVAd ap2 30.6 cm\S\2 LVLd ap2 7.8 cm EDV(MOD-sp2) 96.7 ml EDV(sp2-el) 101.9 ml LVAs ap2 21.5 cm\S\2 LVLs ap2 6.9 cm ESV(MOD-sp2) 53.5 ml ESV(sp2-el) 56.4 ml EF(MOD-sp2) 44.7 % EF(sp2-el) 44.7 % LVLd %diff -4.93 % EDV(MOD-bp) 90.0 ml LVLs %diff 10.2 % ESV(MOD-bp) 52.8 ml EF(MOD-bp) 41.3 % SV(MOD-sp4) 37.1 ml SI(MOD-sp4) 20.6 ml/m\S\2 SV(MOD-sp2) 43.2 ml SI(MOD-sp2) 24.0 ml/m\S\2 SV(MOD-bp) 37.2 ml SI(MOD-bp) 20.7 ml/m\S\2 SV(sp4-el) 39.4 ml SI(sp4-el) 21.9 ml/m\S\2 SV(sp2-el) 45.5 ml SI(sp2-el) 25.3 ml/m\S\2 Doppler Measurements and Calculations MV E max dario 32.9 cm/sec MV A max dario 88.7 cm/sec MV E/A 0.37 MV dec time 0.24 sec Ao V2 max 118.5 cm/sec Ao max PG 5.6 mmHg Ao max PG (full) 2.0 mmHg LIBRADO(V,A) 1.7 cm\S\2 LIBRADO(V,D) 1.7 cm\S\2 AI max dario 402.8 cm/sec AI max PG 64.9 mmHg AI dec slope 198.5 cm/sec\S\2 AI P1/2t 594.2 msec LV V1 max PG 3.6 mmHg LV V1 max 95.1 cm/sec PA V2 max 28.6 cm/sec PA max PG 0.33 mmHg TR max dario 223.3 cm/sec
[2017-04-05] MEDS ORDERED: NORMOSOL R 1,000 ML IV SCH (17:15)
[2017-04-05] MEDS ORDERED: PIPERACILL/TAZOBAC IV 4.5 GM in DEXTROSE 5% 100ML 100 ML IV SCH (18:00)
[2017-04-05] MEDS: CEFTRIAXONE SOD INJ 1 GM in DEXTROSE 5% ADD-VANTAGE 50ML 50 ML IV SCH (18:30)
[2017-04-05] MEDS: PHENYLEPHRINE HCL INJ 20 MG in DEXTROSE 5% 500ML 500 ML IV PRN (18:40)
[2017-04-05] MEDS ORDERED: ONDANSETRON INJ 2 MG/ML 2 ML VIAL ONE (20:27)
[2017-04-05] MEDS ORDERED: NURSING VERBAL MED ORDER ONE (21:15)
[2017-04-06] VITALS (42 sets, daily range): BP systolic 79–125; BP diastolic 42–72; PULSE 69–99; TEMP 36.5–37.1; O2SAT 85–100
[2017-04-06] MEDS: ALBUT/IPRATROP 3MG/0.5MG NEB 3 ML VIAL INH SCH ×4 (05:22→19:09)
[2017-04-06 05:54] LABS: HEMATOCRIT 29.7 % (37-47); MEAN CELL VOLUME 78.8 fL (80-100); MEAN CORPUSCULAR HEMOGLOBIN 24.7 pg (25-34); MEAN CORPUSCULAR HGB CONC 31.3 g/dl (32-36); PLATELET COUNT 130 K/uL (130-400); RED BLOOD COUNT 3.77 M/uL (4.2-5.4); WHITE BLOOD COUNT 4.62 K/uL (4.8-10.8)
[2017-04-06 06:28] LABS: BUN/CREATININE RATIO 24.2 (10-20); CALCIUM 7.5 mg/dl (8.5-10.1); CREATININE 2.4 mg/dl (0.60-1.20); MAGNESIUM 1.3 mg/dl (1.8-2.4)
[2017-04-06 06:35] LABS: ALB/GLOB RATIO 0.8 (0.9-2); PHOSPHORUS 4.1 mg/dl (2.5-4.9)
--- NOTE | 2017-04-06 06:51 | Critical Care Progress Note ---
Critical Care Progress Note Date of Service Apr 06, 2017. ICU Day ICU Day Number: [address] Montes De Oca Subjective [place] her breathing had improved overnight, denied any new pain, weakness or other symptoms. Was on NC / Face mask, just placed on BiPAP again this AM Objective GENERAL: Awake, alert, well-appearing, in mild distress, wearing BiPAP mask HENT: Normocephalic, atraumatic. Oropharynx unremarkable. EYES: Normal conjunctiva. Sclera non-icteric. NECK: Supple. No nuchal rigidity. FROM. No JVD. RESPIRATORY: Breathing capabilities improved, improved wheeze and rhonchi at bases CARDIAC: Regular rate, normal rhythm. Extremities warm and well perfused. Pulses equal. ABDOMEN: Soft, non-distended. No tenderness to palpation. No rebound or guarding. No masses. RECTAL: Deferred. MUSCULOSKELETAL: Chest examination reveals no tenderness. LOWER EXTREMITIES: Calves are equal size bilaterally and non-tender. No edema. No discoloration. NEURO: Normal sensorium. No sensory or motor deficits noted. SKIN: No rash or jaundice noted. ECHO RESULTS * -- Conclusions -- * There is no prior study available for comparison. * The left ventricle is normal in size. * There is moderate to severe global hypokinesis of the left ventricle. * The LV Ejection Fraction = 25-30%. * The right ventricle is normal in size and function. * The aortic valve is trileaflet. * Mild aortic regurgitation. * The non coronary cusp of the aortic valve is thickened and calcified with resultant decreased excursion. Appearance favors sclerosis/ calcification however the presence of a vegetation cannot be excluded. * Recommend clinical correlation regarding suspected source of sepsis. Current SOFA Score SOFA Score Response (Comments) Value PaO2/FiO2 (mmHg) < 400 1 Platelets (x10) < 150 1 Bilirubin (mg/dL) < 1.2 0 [place] Coma Score 15 0 Level of Hypotension MAP less than 70 1 Creatinine (mg/dL) 2.0 - 3.4 2 Total 5 Assessment & Plan NEURO: Mentating well, not on any sedatives CVS: Remains on phenylephrine, BP improved Femoral line placed by Dr Melvin 04/05/17 - we will change this to a PICC line, consent obtained Trop trending downwards, peaked at 0.9 Echo as above concerning for a Takotsubo's clinical picture GI: Advance diet as tolerated - AHA diet RENAL: Had IV fluid resuscitation on arrival per sepsis protocol Insert ríos, monitor I&Os Normosol 100mL/hour RESP: Not comfortable with BiPAP - will change to face mask, aim for sats > 92% Abx started after cultures obtained Obtain sputum culture if possible Procal 101 ID: Blood cx obtained Urine culture pending Day 2 Vanc, Zosyn, Rocephin Femoral line present - will switch to PICC ENDO: 24 hour glc 90-93 BSG q6h Resident Physician Supervision Note: Dr. Jensen was resident physician during care of patient. I separately evaluated patient and did history and exam. I discussed the case with the resident and generally agree with the findings and plan. 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 No afterload reduction, phenylephrine for blood pressure. Limit fluid given at risk for flash pulmonary edema, will give low dose beta junie to see if that improves her systolic function. De-escalate antibiotics, discontinue Zosyn. Attempt to achieve sputum specimen. Discussed with the PICC team regarding PICC placement, no evidence of lymph node dissection, no significant lymphedema of bilateral upper extremities. We have records indicating prior procedure on right side which did not include lymph node dissection will attempt to pick on this side to remove femoral central venous access. I have personally spent 40 minutes of critical care time in the direct management of this patient. This is a life/limb threatening event. This includes time spent evaluating patient, direct bedside care, chart review, placing orders, interpretation of diagnostic studies, discussion with consultants, patient, and family members, as well as other required patient management activities. This time is exclusive of all separately billable procedures, and teaching time and separate from and in addition to any other critical care service time. Documented By: Aldo Montes De Oca DO Consults & Procedures Consultants: None Procedures: Femoral line placed 04/05/17 Data Medications: Current Inpatient Medications Medications (Trade) Dose Ordered Sig/[place] Route Start Time Stop Time Status Last Admin Dose Admin Aspirin (Ecotrin Tab) 81 mg DAILY PO 04/06/17 09:00 05/06/17 08:59 Cholecalciferol (Vitamin D Tab) 400 inter.unit DAILY PO 04/06/17 09:00 05/06/17 08:59 Calcium/Vitamin D (Caltrate Plus Tab) 1 tab DAILY PO 04/06/17 09:00 05/06/17 08:59 Heparin Sodium (Porcine) (Heparin Sq 5000 Unit/0.5ml) 5,000 unit Q12H SQ 04/05/17 11:30 05/05/17 11:29 04/05/17 23:31 5,000 UNIT Acetaminophen (Tylenol Tab) 650 mg Q4H PRN PO 04/05/17 11:30 05/05/17 11:29 Nitroglycerin (Nitrostat Tab) 0.4 mg UD PRN SL 04/05/17 11:30 05/05/17 11:29 Pantoprazole Sodium 40 mg/ Syringe 10 ml @ 5 mls/min DAILY IV 04/06/17 09:00 05/06/17 08:59 Levofloxacin 500 mg/Prmx 100 ml @ 100 mls/hr Q48H IV 04/07/17 10:00 04/12/17 09:59 Vancomycin HCl (Consult) 1 ea DAILY PRN N/A 04/05/17 12:36 05/05/17 12:35 Albuterol/ Ipratropium (Duoneb) 3 ml QIDR INH 04/05/17 16:00 05/05/17 15:59 04/06/17 05:22 3 ML Levofloxacin (Consult) 1 ea UD PRN N/A 04/05/17 12:45 05/05/17 12:44 Phenylephrine HCl 20 mg/Dextrose 502 ml @ 0 mls/hr Q0M PRN IV 04/05/17 18:10 05/05/17 18:09 04/05/17 18:40 23 MLS/HR Ceftriaxone Sodium 1 gm/ Dextrose 50 ml @ 100 mls/hr DAILY@1800 IV 04/05/17 18:30 04/12/17 18:29 04/05/17 18:30 100 MLS/HR Ondansetron HCl (Zofran Inj) 4 mg Q6H PRN IV 04/05/17 20:15 05/05/17 20:14 Vital Signs: Date Time Temp Pulse Resp B/P (MAP) Pulse Ox O2 Delivery O2 Flow Rate FiO2 04/06/17 06:31 85 28 110/62 96 04/06/17 06:01 82 22 110/50 91 04/06/17 05:31 76 25 98/46 92 04/06/17 05:22 73 24 95 Venturi Mask 50 04/06/17 05:01 73 27 96/50 91 04/06/17 04:31 73 29 100/46 92 04/06/17 04:01 73 23 102/48 94 04/06/17 04:00 97 Venturi Mask 60 04/06/17 03:32 77 30 85/49 93 04/06/17 03:01 76 15 103/57 94 04/06/17 02:31 74 23 85/54 97 04/06/17 02:01 69 26 85/43 100 04/06/17 01:31 73 30 87/50 96 04/06/17 01:15 73 22 79/45 98 04/06/17 01:06 72 22 89/42 98 04/06/17 00:02 75 29 81/42 97 04/06/17 00:01 37.1 04/05/17 23:59 97 Venturi Mask 60 04/05/17 23:34 76 96 60 04/05/17 23:02 76 29 91/42 94 04/05/17 22:01 73 30 105/63 95 04/05/17 21:20 75 94 60 04/05/17 21:01 72 28 100/60 95 04/05/17 20:01 75 27 113/62 97 04/05/17 20:00 36.8 04/05/17 20:00 90 Venturi Mask 50 04/05/17 19:32 76 33 123/65 89 04/05/17 19:05 75 27 95 BiPAP/CPAP 60 04/05/17 19:01 75 30 112/62 92 04/05/17 18:00 37.3 66 22 138/79 (98) 89 Venturi Mask 50 04/05/17 17:31 73 93 50 04/05/17 16:10 63 93 60 04/05/17 16:02 63 27 93 BiPAP/CPAP 60 04/05/17 16:00 37.1 71 20 120/78 (92) 95 BiPAP 60 04/05/17 16:00 95 BiPAP 60 04/05/17 14:00 37.3 58 18 116/68 (84) 96 BiPAP 100 04/05/17 12:40 37.5 73 22 119/60 (79) 98 BiPAP 100 04/05/17 12:40 37.5 73 22 119/60 98 BiPAP 100 04/05/17 12:13 84 38 109/60 90 04/05/17 12:03 84 29 92/77 04/05/17 11:58 87 36 04/05/17 11:53 92 28 128/95 04/05/17 11:48 88 34 04/05/17 11:43 85 32 120/74 04/05/17 11:40 62/40 04/05/17 11:38 88 34 93 04/05/17 11:33 82 31 92 04/05/17 11:28 83 39 75 04/05/17 11:25 38.2 04/05/17 11:23 108/75 04/05/17 11:22 81 36 69 04/05/17 11:17 73 35 97 04/05/17 11:12 79 31 92 04/05/17 11:07 75 33 93 04/05/17 11:02 62 27 82 04/05/17 10:57 65 37 04/05/17 10:52 67 31 84 04/05/17 10:47 52 29 93 04/05/17 10:42 52 29 59/38 93 04/05/17 10:37 56 92 100 04/05/17 10:37 46 24 85 04/05/17 10:36 56 34 92 BiPAP/CPAP 100 04/05/17 10:36 57/37 04/05/17 10:32 46 33 93 04/05/17 10:27 60 34 04/05/17 10:24 75/51 04/05/17 10:22 63 04/05/17 10:20 60 20 75/51 90 CPAP 100 04/05/17 10:20 90 CPAP 100 04/05/17 10:20 CPAP Laboratory Results: Last 24 Hours Test 04/05/17 10:55 04/05/17 11:09 04/05/17 11:34 04/05/17 11:53 White Blood Count 2.34 K/uL Red Blood Count 3.88 M/uL Hemoglobin 10.0 g/dL Hematocrit 31.1 % Mean Corpuscular Volume 80.2 fL Mean Corpuscular Hemoglobin 25.8 pg Mean Corpuscular Hemoglobin Concent 32.2 g/dl Platelet Count 171 K/uL Mean Platelet Volume 10.3 fL Neutrophils (%) (Auto) 69.2 % Lymphocytes (%) (Auto) 28.2 % Monocytes (%) (Auto) 1.7 % Eosinophils (%) (Auto) 0.9 % Basophils (%) (Auto) 0.0 % Neutrophils # (Auto) 1.62 K/uL Lymphocytes # (Auto) 0.66 K/uL Monocytes # (Auto) 0.04 K/uL Eosinophils # (Auto) 0.02 K/uL Basophils # (Auto) 0.00 K/uL RDW Standard Deviation 47.6 fL RDW Coefficient of Variation 16.1 % Immature Granulocyte % (Auto) 0.0 % Immature Granulocyte # (Auto) 0.00 K/uL Prothrombin Time 14.3 SECONDS Prothromb Time International Ratio 1.3 Activated Partial Thromboplast Time 32.1 SECONDS Partial Thromboplastin Ratio 1.2 Sodium Level 141 mmol/L Potassium Level 3.7 mmol/L Chloride Level 107 mmol/L Carbon Dioxide Level 19 mmol/L Anion Gap 15.0 mmol/L Blood Urea Nitrogen 54 mg/dl Creatinine 3.20 mg/dl Est Creatinine Clear Calc Drug Dose 12.5 ml/min Estimated GFR () 14.5 Estimated GFR (Non- 12.5 BUN/Creatinine Ratio 16.8 Random Glucose 93 mg/dl Calcium Level 8.7 mg/dl Total Bilirubin 0.4 mg/dl Aspartate Amino Transf (AST/SGOT) 21 U/L Alanine Aminotransferase (ALT/SGPT) 20 U/L Alkaline Phosphatase 44 U/L Total Creatine Kinase 141 U/L Creatine Kinase MB 3.5 ng/ml Creatine Kinase MB Ratio 2.5 Troponin I 0.279 ng/ml Total Protein 5.7 gm/dl Albumin 2.5 gm/dl Globulin 3.2 gm/dl Albumin/Globulin Ratio 0.8 Arterial Blood pH 7.37 Arterial Blood Partial Pressure CO2 27 mmHg Arterial Blood Partial Pressure O2 92 mm/Hg Arterial Blood HCO3 15 mmol/L Arterial Blood Oxygen Saturation 95.7 % Arterial Blood Base Excess -9.0 mEq/L Arterial Blood Gas Delivery 08/04 Kev Test POS Bedside Lactic Acid Venous 5.50 mmol/L Lactic Acid Level 5.5 mmol/L Test 04/05/17 11:54 04/05/17 12:05 04/05/17 15:14 04/05/17 17:37 Influenza Type A (RT-PCR) Neg for Influ A Influenza Type A Antigen Neg for Influ A Influenza Type B Antigen Neg for Influ B Influenza Type B (RT-PCR) Neg for Influ B Urine Color DK YELLOW Urine Appearance CLOUDY Urine pH 5.0 Urine Specific [place] 1.023 Urine Protein TRACE Urine Glucose (UA) NEG Urine Ketones NEG Urine Occult Blood NEG Urine Nitrite NEG Urine Bilirubin NEG Urine Urobilinogen NEG Urine Leukocyte Esterase NEG Urine WBC (Auto) 0 /hpf Urine RBC (Auto) 0-4 /hpf Urine Hyaline Casts (Auto) 0 /lpf Urine Epithelial Cells (Auto) >30 /lpf Urine Bacteria (Auto) NEG Urine Pathogenic Casts /lpf Lactic Acid Level 4.6 mmol/L 3.3 mmol/L Troponin I 0.797 ng/ml Procalcitonin 101.14 ng/ml Test 04/05/17 18:12 04/05/17 23:10 04/05/17 23:15 04/06/17 05:37 Bedside Glucose 109 mg/dl Lactic Acid Level 3.0 mmol/L 2.4 mmol/L Troponin I 0.905 ng/ml 0.898 ng/ml Bedside Glucose (other) 88 mg/dl White Blood Count 4.62 K/uL Red Blood Count 3.77 M/uL Hemoglobin 9.3 g/dL Hematocrit 29.7 % Mean Corpuscular Volume 78.8 fL Mean Corpuscular Hemoglobin 24.7 pg Mean Corpuscular Hemoglobin Concent 31.3 g/dl RDW Standard Deviation 46.0 fL RDW Coefficient of Variation 15.9 % Platelet Count 130 K/uL Mean Platelet Volume 10.0 fL Sodium Level 139 mmol/L Potassium Level 4.0 mmol/L Chloride Level 107 mmol/L Carbon Dioxide Level 22 mmol/L Anion Gap 10.0 mmol/L Blood Urea Nitrogen 58 mg/dl Creatinine 2.40 mg/dl Est Creatinine Clear Calc Drug Dose 16.5 ml/min Estimated GFR () 20.5 Estimated GFR (Non- 17.7 BUN/Creatinine Ratio 24.2 Random Glucose 90 mg/dl Calcium Level 7.5 mg/dl Phosphorus Level 4.1 mg/dl Magnesium Level 1.3 mg/dl Total Bilirubin 0.5 mg/dl Aspartate Amino Transf (AST/SGOT) 56 U/L Alanine Aminotransferase (ALT/SGPT) 49 U/L Alkaline Phosphatase 32 U/L Total Protein 5.3 gm/dl Albumin 2.3 gm/dl Globulin 3.0 gm/dl Albumin/Globulin Ratio 0.8 Random Vancomycin Level 14.2 mcg/ml Test 04/06/17 05:41 Bedside Glucose (other) 91 mg/dl Resident Tracking Resident Involvement: Resident Care Provided Care Provided: Adult Hospital Medicine
--- NOTE | 2017-04-06 07:00 | DIAGNOSTIC IMAGING REPORT ---
CHEST ONE VIEW PORTABLE CLINICAL HISTORY: Pneumonia COMPARISON STUDY: 04/05/2017 FINDINGS: There is persistent right basilar consolidation. The heart is the upper limits of normal in size. There is no overt failure. Slightly prominent interstitial left basilar markings remain stable. Trace pleural effusions cannot be excluded.[ IMPRESSION: Persistent dense right basilar consolidation suspicious for a pneumonia. Electronically signed by: Demarcus Freitas M.D. 04/06/2017 6:58 AM Dictated Date/Time: 04/06/2017 6:57 AM
[2017-04-06] MEDS ORDERED: MAGNESIUM SULFATE 1GM / D5W 1 GM in PREMIXED IN D5W 100 ML IV STA (08:19)
[2017-04-06] MEDS: ASPIRIN 81 MG ECTAB PO SCH (08:26)
[2017-04-06] MEDS: CALCIUM 600MG + VIT D 400 IU TAB PO SCH (08:26)
[2017-04-06] MEDS: CHOLECALCIFEROL 400 INTER.UNIT TAB PO SCH (08:26)
[2017-04-06] MEDS ORDERED: ALBUT/IPRATROP 3MG/0.5MG NEB 3 ML VIAL INH PRN (08:45)
[2017-04-06] MEDS ORDERED: PANTOprazole INJ 40 MG in SYRINGE 0 ML IV SCH (09:00)
[2017-04-06] MEDS ORDERED: MAGNESIUM OXIDE 400 MG TAB PO SCH (09:00)
[2017-04-06] MEDS ORDERED: METOPROLOL TARTRATE 1 MG/ML VIAL IV ONE (09:30)
[2017-04-06] MEDS: MAGNESIUM SULFATE 1GM / D5W 1 GM in PREMIXED IN D5W 100 ML IV SCH ×2 (09:42→10:22)
[2017-04-06] MEDS: ONDANSETRON INJ 2 MG/ML 2 ML VIAL IV PRN ×2 (10:22→20:24)
[2017-04-06] MEDS: HEPARIN SOD 5000 UNIT/0.5 ML CARP SQ SCH (10:23)
[2017-04-06] MEDS: CEFTRIAXONE SOD INJ 1 GM in DEXTROSE 5% ADD-VANTAGE 50ML 50 ML IV SCH (17:33)
--- NOTE | 2017-04-06 18:34 | Progress Note ---
Medicine Progress Note Date & Time of Visit: Apr 06, 2017 at 17:59. Subjective Pt was seen and examined On pressor being managed in the ICU She said that she feels a little better Her breathing feels much better Denies any chest pain, palpitation, fever and dizziness Objective Last 8 Hrs Date Time Temp Pulse Resp B/P (MAP) Pulse Ox O2 Delivery O2 Flow Rate FiO2 04/06/17 17:43 74 26 106/52 (70) 94 BiPAP 60 04/06/17 17:02 76 18 106/51 (69) 95 BiPAP 60 04/06/17 16:01 37.1 80 26 125/69 (87) 93 BiPAP 60 04/06/17 16:00 BiPAP 50 04/06/17 15:58 87 92 60 04/06/17 15:57 87 32 85 Nasal Cannula 6.0 04/06/17 15:32 79 24 106/57 (73) 88 Venturi Mask 50 04/06/17 15:01 78 25 96/49 (65) 92 BiPAP 60 04/06/17 14:02 80 27 104/47 (66) 93 BiPAP 50 04/06/17 13:01 77 27 116/72 (87) 90 Nasal Cannula 6.0 04/06/17 12:48 73 21 105/63 (77) 90 Nasal Cannula 6.0 04/06/17 12:31 37.1 71 27 107/61 (76) 95 BiPAP 50 04/06/17 12:02 83 21 95/46 (62) 94 BiPAP 50 04/06/17 12:00 BiPAP 50 04/06/17 11:52 79 91 50 04/06/17 11:52 79 21 91 BiPAP/CPAP 50 04/06/17 11:31 78 24 116/55 (75) 93 BiPAP 50 04/06/17 11:30 76 25 107/53 (71) 92 BiPAP 50 04/06/17 10:22 77 27 102/52 (69) 90 Nasal Cannula 6.0 04/06/17 10:22 77 102/52 04/06/17 10:01 73 25 101/51 (68) 90 Nasal Cannula 6.0 Physical Exam: General- very pleasant, follow commands Head- atraumatic Eyes- PERRL, EOMI ENT- oropharynx clear Neck- supple, no JVD Lungs- Coarse BS Heart- regular rhythm Abdomen- normal bowel sounds, soft Extremities- no calf tenderness Neuro- alert, oriented, PERRL, EOMI Skin- warm & dry Laboratory Results: Last 24 Hours Test 04/05/17 18:12 04/05/17 23:10 04/05/17 23:15 04/06/17 05:37 Bedside Glucose 109 mg/dl Lactic Acid Level 3.0 mmol/L 2.4 mmol/L Troponin I 0.905 ng/ml 0.898 ng/ml Bedside Glucose (other) 88 mg/dl White Blood Count 4.62 K/uL Red Blood Count 3.77 M/uL Hemoglobin 9.3 g/dL Hematocrit 29.7 % Mean Corpuscular Volume 78.8 fL Mean Corpuscular Hemoglobin 24.7 pg Mean Corpuscular Hemoglobin Concent 31.3 g/dl RDW Standard Deviation 46.0 fL RDW Coefficient of Variation 15.9 % Platelet Count 130 K/uL Mean Platelet Volume 10.0 fL Sodium Level 139 mmol/L Potassium Level 4.0 mmol/L Chloride Level 107 mmol/L Carbon Dioxide Level 22 mmol/L Anion Gap 10.0 mmol/L Blood Urea Nitrogen 58 mg/dl Creatinine 2.40 mg/dl Est Creatinine Clear Calc Drug Dose 16.5 ml/min Estimated GFR () 20.5 Estimated GFR (Non- 17.7 BUN/Creatinine Ratio 24.2 Random Glucose 90 mg/dl Calcium Level 7.5 mg/dl Phosphorus Level 4.1 mg/dl Magnesium Level 1.3 mg/dl Total Bilirubin 0.5 mg/dl Aspartate Amino Transf (AST/SGOT) 56 U/L Alanine Aminotransferase (ALT/SGPT) 49 U/L Alkaline Phosphatase 32 U/L Total Protein 5.3 gm/dl Albumin 2.3 gm/dl Globulin 3.0 gm/dl Albumin/Globulin Ratio 0.8 Random Vancomycin Level 14.2 mcg/ml Test 04/06/17 05:41 04/06/17 11:25 04/06/17 12:39 04/06/17 16:40 Bedside Glucose (other) 91 mg/dl 116 mg/dl Troponin I 1.100 ng/ml Bedside Glucose 96 mg/dl Assessment & Plan SEPSIS/SEPTIC SHOCK Secondary with B/L pneumonia Presented on admission with elevated lactic acid, hypoxia and hypotension Received 2 L NS in the ER Was started to IV Levophed that was changed to phenylephrine to keep MAP above 65 Received IV Zosyn, Levofloxacin, Vancomycin in ED. Abx de-escalated to Levaquin and Rocephin Lactic acid trending down Blood culture pending Commodities Manager on board Continue phenylephrine drip Continue monitor in the ICU ACUTE HYPOXIC RESPIRATORY FAILURE Secondary to B/L pneumonia On BIPAP ntensivist on board. IRA VS IRA ON CKD Mostly related to sepsis Baseline: not in EMR. Presented with creatinine of 3.20 creatine improved to 2.4 Continue monitor BMP avoid nephrotoxic agents ELEVATED TROPONIN Likely demand ischemia due to septic shock/ hypovolemia and elevated creatine Denies any chest pain EKG showed no ischemic changes Continue aspirin ECHO showed: * The left ventricle is normal in size. * There is moderate to severe global hypokinesis of the left ventricle. * The LV Ejection Fraction = 25-30%. * The right ventricle is normal in size and function. * The aortic valve is trileaflet. * Mild aortic regurgitation. * The non coronary cusp of the aortic valve is thickened and calcified with resultant decreased excursion. Appearance favors sclerosis/ calcification however the presence of a vegetation cannot be excluded. SYSTOLIC DYSFUNCTION ECHO showed severe global hypokinesis of LV with EF 25-30% Possible related to septic shock Will monitor for volume overload continue monitor in the ICU HYPOMAGNESEMIA Mg replaced continue monitor electrolytes HTN- On pressors Continue holding Atenolol/Chlorthalidone, Ramipril HX OF BREAST CARCINOMA S/P MASTECTOMY In remission DYSLIPIDEMIA Hold Statin DVT Px on heparin subq CODE STATUS DNR Current Inpatient Medications: Current Inpatient Medications Medications (Trade) Dose Ordered Sig/[place] Route Start Time Stop Time Status Last Admin Dose Admin Aspirin (Ecotrin Tab) 81 mg DAILY PO 04/06/17 09:00 05/06/17 08:59 04/06/17 08:26 81 MG Cholecalciferol (Vitamin D Tab) 400 inter.unit DAILY PO 04/06/17 09:00 05/06/17 08:59 04/06/17 08:26 400 INTER.UNIT Calcium/Vitamin D (Caltrate Plus Tab) 1 tab DAILY PO 04/06/17 09:00 05/06/17 08:59 04/06/17 08:26 1 TAB Heparin Sodium (Porcine) (Heparin Sq 5000 Unit/0.5ml) 5,000 unit Q12H SQ 04/05/17 11:30 05/05/17 11:29 04/06/17 10:23 5,000 UNIT Acetaminophen (Tylenol Tab) 650 mg Q4H PRN PO 04/05/17 11:30 05/05/17 11:29 Nitroglycerin (Nitrostat Tab) 0.4 mg UD PRN SL 04/05/17 11:30 05/05/17 11:29 Levofloxacin 500 mg/Prmx 100 ml @ 100 mls/hr Q48H IV 04/07/17 10:00 04/12/17 09:59 Levofloxacin (Consult) 1 ea UD PRN N/A 04/05/17 12:45 05/05/17 12:44 Phenylephrine HCl 20 mg/Dextrose 502 ml @ 0 mls/hr Q0M PRN IV 04/05/17 18:10 05/05/17 18:09 04/05/17 18:40 23 MLS/HR Ceftriaxone Sodium 1 gm/ Dextrose 50 ml @ 100 mls/hr DAILY@1800 IV 04/05/17 18:30 04/12/17 18:29 04/06/17 17:33 100 MLS/HR Ondansetron HCl (Zofran Inj) 4 mg Q6H PRN IV 04/05/17 20:15 05/05/17 20:14 04/06/17 10:22 4 MG Albuterol/ Ipratropium (Duoneb) 3 ml QIDR INH 04/06/17 12:00 05/06/17 11:59 04/06/17 15:56 3 ML Albuterol/ Ipratropium (Duoneb) 3 ml Q2H PRN INH 04/06/17 08:45 05/06/17 08:44 Pantoprazole Sodium (Protonix Tab) 40 mg QAM PO 04/07/17 09:00 05/07/17 08:59
[2017-04-06] MEDS: ROPINIROLE HCL 1 MG TAB PO SCH (21:17)
[2017-04-07] VITALS (20 sets, daily range): BP systolic 84–161; BP diastolic 39–83; PULSE 61–98; TEMP 36.4–37; O2SAT 70–96
[2017-04-07] MEDS ORDERED: MoRPHine SULFATE 2 MG/ML CARP IV STA ×4 (01:16→10:55)
[2017-04-07] MEDS ORDERED: NOREPINEPHRINE BIT INJ 8 MG in DEXTROSE 5% 500ML 500 ML IV PRN (04:00)
[2017-04-07] MEDS ORDERED: FUROSEMIDE INJ 40 MG in SYRINGE 0 ML IV STA (04:02)
[2017-04-07] MEDS ORDERED: FUROSEMIDE 40 MG/4 ML VIAL ONE (04:02)
[2017-04-07] MEDS: ONDANSETRON INJ 2 MG/ML 2 ML VIAL IV PRN ×2 (04:20→10:54)
[2017-04-07 05:46] LABS: HEMATOCRIT 29.8 % (37-47); MEAN CELL VOLUME 79.5 fL (80-100); MEAN CORPUSCULAR HEMOGLOBIN 25.3 pg (25-34); MEAN CORPUSCULAR HGB CONC 31.9 g/dl (32-36); MEAN PLATELET VOLUME 10.7 fL (7.4-10.4); PLATELET COUNT 147 K/uL (130-400); RED BLOOD COUNT 3.75 M/uL (4.2-5.4); WHITE BLOOD COUNT 10.68 K/uL (4.8-10.8)
[2017-04-07 06:21] LABS: BUN/CREATININE RATIO 33.6 (10-20); CALCIUM 7.9 mg/dl (8.5-10.1); CREATININE 1.8 mg/dl (0.60-1.20); MAGNESIUM 2.2 mg/dl (1.8-2.4); POTASSIUM 3.7 mmol/L (3.5-5.1)
[2017-04-07] MEDS ORDERED: MoRPHine SULFATE 2 MG/ML CARP ONE (06:58)
[2017-04-07] MEDS ORDERED: METOPROLOL TARTRATE 1 MG/ML VIAL IV STA (07:00)
[2017-04-07] MEDS ORDERED: DOBUTamine / D5W 500 MG IV PRN (07:13)
--- NOTE | 2017-04-07 07:13 | DIAGNOSTIC IMAGING REPORT ---
CHEST ONE VIEW PORTABLE CLINICAL HISTORY: Pneumonia COMPARISON STUDY: 04/07/2017 FINDINGS: There is been interval placement of a right-sided PICC catheter. The tip projects over the right atrium. The heart is enlarged. There are persistent right lower lobe airspace opacities suspicious for a pneumonia. There are progressive left lower lobe airspace opacities. There is diffuse haziness the right hemithorax, possibly secondary to a posterior layering pleural effusion. There is a small left pleural effusion.[ IMPRESSION: 1. Interval insertion of a right-sided PICC catheter 2. Persistent right basal consolidation. Developing left basilar consolidation. 3. Suspected bilateral pleural effusions. Electronically signed by: Demarcus Freitas M.D. 04/07/2017 7:11 AM Dictated Date/Time: 04/07/2017 7:09 AM
[2017-04-07] MEDS: ALBUT/IPRATROP 3MG/0.5MG NEB 3 ML VIAL INH SCH ×2 (07:26→11:21)
--- NOTE | 2017-04-07 07:30 | Critical Care Progress Note ---
Critical Care Progress Note Date of Service Apr 07, 2017. ICU Day ICU Day Number: [address] Montes De Oca Subjective Overnight, pt was more restless and wanted BiPAP mask off. Per STEPHANIE Kauffman, the pt was saying she didn't want BiPAP anymore, and would desaturate with face mask and nasal cannula. She was given morphine sulfate 2mg IV and her BP dropped significantly. She was restarted on Levophed. She was given 40mg Lasix IV. Upon seeing her this morning, she confirmed she did not want to be intubated if her breathing worsened. She did not want BiPAP. At 6:55AM, I attempted calling her sister (number listed in chart) but no one answered. I tried again 5 minutes later, again with no answer. At 9:45AM, I called another family member, Alvaro Baker at [phone] and left a message as he was unavailable Objective GENERAL: Awake, alert, well-appearing, in mild distress, wearing BiPAP mask HENT: Normocephalic, atraumatic. Oropharynx unremarkable. EYES: Normal conjunctiva. Sclera non-icteric. NECK: Supple. No nuchal rigidity. FROM. No JVD. RESPIRATORY: Breathing capabilities improved, improved wheeze and rhonchi at bases CARDIAC: Regular rate, normal rhythm. Extremities warm and well perfused. Pulses equal. ABDOMEN: Soft, non-distended. No tenderness to palpation. No rebound or guarding. No masses. RECTAL: Deferred. MUSCULOSKELETAL: Chest examination reveals no tenderness. LOWER EXTREMITIES: Calves are equal size bilaterally and non-tender. No edema. No discoloration. NEURO: Normal sensorium. No sensory or motor deficits noted. SKIN: No rash or jaundice noted. ECHO RESULTS * -- Conclusions -- * There is no prior study available for comparison. * The left ventricle is normal in size. * There is moderate to severe global hypokinesis of the left ventricle. * The LV Ejection Fraction = 25-30%. * The right ventricle is normal in size and function. * The aortic valve is trileaflet. * Mild aortic regurgitation. * The non coronary cusp of the aortic valve is thickened and calcified with resultant decreased excursion. Appearance favors sclerosis/ calcification however the presence of a vegetation cannot be excluded. * Recommend clinical correlation regarding suspected source of sepsis. 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 CAM negative. Will give another 1mg Morphine IV now. CVS: We will wean off and stop Levophed We will add Dobutamine and then later add Phenylephrine if needed GI: NPO RENAL: Poor UO, will continue to monitor Will give 1mg Bumex today IV RESP: Remains uncomfortable with BiPAP, will keep face mask / NC if tolerated Sats improved with Oxymask / high flow ID: Blood cx obtained Will increase Rocephin dose to 2g q12h, continue Levaquin, and re-initiate Vancomycin PICC line present Femoral line removed ENDO: 24 hour glc 90-93 BSG q6h She again clearly stated she DID NOT WANT to be intubated if her breathing worsens. Overall, prognosis is guarded. We will continue calling her sister again to have family informed. 10:30 - The pts nephew called back and said he would try to be in before 5pm. He did not have any concerns or objections to comfort care if needed. I explained we are still trying to keep her BP higher with other medications, and increase her oxygenation with the mask, but overall prognosis is poor. Advised him and the pts sister to come in sooner. 10:57AM: Pt was visibly dyspneic - BP had improved, was 140/80s, O2 sats 88-92% , she was pulling mask off frequently - Discussed with Joe Cline, will give another 1mg Morphine IV now and keep order for q3h IV. 11 AM: I called the pt's nephew again, he said he would be present in within an hour. Nephew also mentioned he spoke to the pts sister (NEL) who said she agreed with comfort care as she "did not want to see her in that much pain anymore" Discussed with the patient - who has capacity - who said she wants to stop wearing the masks, understands she may from respiratory failure if she doesn't have any oxygen. She said to take her out of the misery. 11:30: Discussed with Dr Montes De Oca and Hospitalist Dr Grider - both agree with comfort care. With SENA Denis, and EYAL Carlson, we switched the high flow oxygen to a face mask. Her drips were stopped. She did not want this either and said to leave it off. I had ordered 1mg Morphine Sulfate IV, but prior to administration, her resp rate went from about 32 to 16. We did not administer this further dose. her breathing steadied and she became comfortable and was resting. 11:40: I called the patients nephew again. He did not answer so I left a voicemail saying to call us back. 11:55: I called the patients nephew again, he said he was on his way and would be at the hospital in 15-20 minutes. He said the family ed transporter would be coming as well. 12:30: The ed transporter and his arrived. The patient remained comfortable. Resident Physician Supervision Note: Dr. Jensen was resident physician during care of patient. I separately evaluated patient and did history and exam. I discussed the case with the resident and generally agree with the findings and plan. Patient maintains capacity, understands risks and benefits of not undergoing additional invasive procedures and desires to be made comfort care. She no longer desired to have the noninvasive the laboratory mask on her, and concern for worsening hypotension and sepsis associated cardiomyopathy secondary to sepsis secondary to a right lower lobe pneumonia. Patient was transitioned to comfort measures and at 1559. Additional family was at the bedside and appropriately grieving. I have personally spent 37 minutes of critical care time in the direct management of this patient. This is a life/limb threatening event. This includes time spent evaluating patient, direct bedside care, chart review, placing orders, interpretation of diagnostic studies, discussion with consultants, patient, and family members, as well as other required patient management activities. This time is exclusive of all separately billable procedures, and teaching time and separate from and in addition to any other critical care service time. Documented By: Aldo Montes De Oca DO Consults & Procedures Consultants: None Procedures: Femoral line placed 04/05/17 Data Medications: Current Inpatient Medications Medications (Trade) Dose Ordered Sig/[place] Route Start Time Stop Time Status Last Admin Dose Admin Aspirin (Ecotrin Tab) 81 mg DAILY PO 04/06/17 09:00 05/06/17 08:59 04/06/17 08:26 81 MG Cholecalciferol (Vitamin D Tab) 400 inter.unit DAILY PO 04/06/17 09:00 05/06/17 08:59 04/06/17 08:26 400 INTER.UNIT Calcium/Vitamin D (Caltrate Plus Tab) 1 tab DAILY PO 04/06/17 09:00 05/06/17 08:59 04/06/17 08:26 1 TAB Heparin Sodium (Porcine) (Heparin Sq 5000 Unit/0.5ml) 5,000 unit Q12H SQ 04/05/17 11:30 05/05/17 11:29 04/06/17 10:23 5,000 UNIT Acetaminophen (Tylenol Tab) 650 mg Q4H PRN PO 04/05/17 11:30 05/05/17 11:29 Nitroglycerin (Nitrostat Tab) 0.4 mg UD PRN SL 04/05/17 11:30 05/05/17 11:29 Levofloxacin 500 mg/Prmx 100 ml @ 100 mls/hr Q48H IV 04/07/17 10:00 04/12/17 09:59 Levofloxacin (Consult) 1 ea UD PRN N/A 04/05/17 12:45 05/05/17 12:44 Phenylephrine HCl 20 mg/Dextrose 502 ml @ 0 mls/hr Q0M PRN IV 04/05/17 18:10 05/05/17 18:09 04/05/17 18:40 23 MLS/HR Ceftriaxone Sodium 1 gm/ Dextrose 50 ml @ 100 mls/hr DAILY@1800 IV 04/05/17 18:30 04/12/17 18:29 04/06/17 17:33 100 MLS/HR Ondansetron HCl (Zofran Inj) 4 mg Q6H PRN IV 04/05/17 20:15 05/05/17 20:14 04/07/17 04:20 4 MG Albuterol/ Ipratropium (Duoneb) 3 ml QIDR INH 04/06/17 12:00 05/06/17 11:59 04/06/17 19:09 3 ML Albuterol/ Ipratropium (Duoneb) 3 ml Q2H PRN INH 04/06/17 08:45 05/06/17 08:44 Pantoprazole Sodium (Protonix Tab) 40 mg QAM PO 04/07/17 09:00 05/07/17 08:59 Ropinirole HCl (Requip Tab) 4 mg TID PO 04/06/17 21:00 05/06/17 20:59 04/06/17 21:17 4 MG Norepinephrine Bitartrate 8 mg/ Dextrose 508 ml @ 0 mls/hr Q0M PRN IV 04/07/17 04:00 05/07/17 03:59 04/07/17 04:21 28 MLS/HR Potassium Chloride 20 meq/ Prmx 100 ml @ 50 mls/hr Q2H IV 04/07/17 07:00 04/07/17 10:59 Dobutamine HCl 0 ml @ 0 mls/hr Q0M PRN IV 04/07/17 07:13 05/07/17 07:12 Vital Signs: Date Time Temp Pulse Resp B/P (MAP) Pulse Ox O2 Delivery O2 Flow Rate FiO2 04/07/17 06:00 84 150/82 (104) 70 Nasal Cannula 6.0 04/07/17 04:03 37.0 73 21 121/56 (77) 87 BiPAP 100 04/07/17 04:03 83 87 100 04/07/17 04:00 91 BiPAP 100 04/07/17 03:57 77 19 161/61 (94) 86 04/07/17 01:21 92 88 100 04/07/17 00:00 94 BiPAP 100 04/07/17 00:00 36.9 72 26 84/58 (67) 91 BiPAP 100 04/06/17 23:36 99 90 100 04/06/17 20:00 94 BiPAP 60 04/06/17 20:00 36.9 04/06/17 19:16 74 94 60 04/06/17 19:14 73 26 94 BiPAP/CPAP 60 04/06/17 17:43 74 26 106/52 (70) 94 BiPAP 60 04/06/17 17:02 76 18 106/51 (69) 95 BiPAP 60 04/06/17 16:01 37.1 80 26 125/69 (87) 93 BiPAP 60 04/06/17 16:00 BiPAP 50 04/06/17 15:58 87 92 60 04/06/17 15:57 87 32 85 Nasal Cannula 6.0 04/06/17 15:32 79 24 106/57 (73) 88 Venturi Mask 50 04/06/17 15:01 78 25 96/49 (65) 92 BiPAP 60 04/06/17 14:02 80 27 104/47 (66) 93 BiPAP 50 04/06/17 13:01 77 27 116/72 (87) 90 Nasal Cannula 6.0 04/06/17 12:48 73 21 105/63 (77) 90 Nasal Cannula 6.0 04/06/17 12:31 37.1 71 27 107/61 (76) 95 BiPAP 50 04/06/17 12:02 83 21 95/46 (62) 94 BiPAP 50 04/06/17 12:00 BiPAP 50 04/06/17 11:52 79 91 50 04/06/17 11:52 79 21 91 BiPAP/CPAP 50 04/06/17 11:31 78 24 116/55 (75) 93 BiPAP 50 04/06/17 11:30 76 25 107/53 (71) 92 BiPAP 50 04/06/17 10:22 77 27 102/52 (69) 90 Nasal Cannula 6.0 04/06/17 10:22 77 102/52 04/06/17 10:01 73 25 101/51 (68) 90 Nasal Cannula 6.0 04/06/17 09:01 79 29 110/58 (75) 92 Nasal Cannula 6.0 04/06/17 08:32 80 28 102/52 (69) 93 Nasal Cannula 6.0 04/06/17 08:01 36.5 80 26 110/56 (74) 97 BiPAP 50 04/06/17 08:00 BiPAP 50 04/06/17 08:00 BiPAP 50 Laboratory Results: Last 24 Hours Test 04/06/17 11:25 04/06/17 12:39 04/06/17 16:40 04/06/17 18:00 Troponin I 1.100 ng/ml 1.550 ng/ml Bedside Glucose (other) 116 mg/dl Bedside Glucose 96 mg/dl Lactic Acid Level 1.8 mmol/L Test 04/06/17 20:00 04/07/17 05:24 Bedside Glucose 136 mg/dl White Blood Count 10.68 K/uL Red Blood Count 3.75 M/uL Hemoglobin 9.5 g/dL Hematocrit 29.8 % Mean Corpuscular Volume 79.5 fL Mean Corpuscular Hemoglobin 25.3 pg Mean Corpuscular Hemoglobin Concent 31.9 g/dl RDW Standard Deviation 46.9 fL RDW Coefficient of Variation 16.1 % Platelet Count 147 K/uL Mean Platelet Volume 10.7 fL Sodium Level 143 mmol/L Potassium Level 3.7 mmol/L Chloride Level 110 mmol/L Carbon Dioxide Level 23 mmol/L Anion Gap 10.0 mmol/L Blood Urea Nitrogen 61 mg/dl Creatinine 1.80 mg/dl Est Creatinine Clear Calc Drug Dose 22.0 ml/min Estimated GFR () 29.0 Estimated GFR (Non- 25.0 BUN/Creatinine Ratio 33.6 Random Glucose 89 mg/dl Calcium Level 7.9 mg/dl Phosphorus Level 5.0 mg/dl Magnesium Level 2.2 mg/dl Procalcitonin 67.30 ng/ml Resident Tracking Resident Involvement: Resident Care Provided Care Provided: Adult [facility] Medicine
[2017-04-07] MEDS: HEPARIN SOD 5000 UNIT/0.5 ML CARP SQ SCH ×2 (07:33→11:04)
[2017-04-07] MEDS: ROPINIROLE HCL 1 MG TAB PO SCH ×2 (07:34→12:12)
[2017-04-07] MEDS: CALCIUM 600MG + VIT D 400 IU TAB PO SCH (07:34)
[2017-04-07] MEDS: ASPIRIN 81 MG ECTAB PO SCH (07:34)
[2017-04-07] MEDS: CHOLECALCIFEROL 400 INTER.UNIT TAB PO SCH (07:34)
[2017-04-07] MEDS: POTASSIUM CHLR 20 MEQ / WTR 20 MEQ in PREMIXED WATER 100 ML IV SCH ×2 (07:45→09:21)
[2017-04-07] MEDS ORDERED: PANTOprazole SOD 40 MG TAB PO SCH (09:00)
[2017-04-07] MEDS ORDERED: BUMETANIDE IV 1 MG in SYRINGE 0 ML IV ONE (09:15)
[2017-04-07] MEDS ORDERED: VANCOMYCIN CONSULT ACTIVE PRN (09:15)
[2017-04-07] MEDS: PHENYLEPHRINE HCL INJ 20 MG in DEXTROSE 5% 500ML 500 ML IV PRN (09:27)
[2017-04-07] MEDS ORDERED: LEVOFLOXACIN / D5W 500 MG in PREMIXED IN D5W 100 ML IV SCH (10:00)
[2017-04-07] MEDS ORDERED: LEVOFLOXACIN 750MG / D5W IV SCH (10:00)
[2017-04-07] MEDS ORDERED: CEFTRIAXONE SOD INJ 2,000 MG in DEXTROSE 5% 50ML 50 ML IV SCH (10:00)
[2017-04-07] MEDS ORDERED: VANCOMYCIN INJ 1,500 MG in SODIUM CHLORIDE 0.9% 500ML 500 ML IV SCH (11:00)
[2017-04-07] MEDS ORDERED: MoRPHine SULFATE 2 MG/ML CARP IV PRN (11:00)
--- NOTE | 2017-04-07 12:03 | Pharmacy Progress Note ---
Pharmacy Antibiotic Consult Date of Service: Apr 07, 2017. Pharmacy Dosing Scope Pharmacy is consulted to restart vancomycin IV dosing therapy, order appropriate labs and adjust drug dose/frequency. Subjective The patient is a 87 year old female admitted on Apr 05, 2017 at 11:30. Objective Height (Feet): 5 Height (Inches): 4.00 Weight (Kilograms): 73.000 Lab Results (24hrs): Test 04/06/17 12:39 04/06/17 16:40 04/06/17 18:00 04/06/17 20:00 Bedside Glucose (other) 116 mg/dl (70-99) Bedside Glucose 96 mg/dl (70-90) 136 mg/dl (70-90) Lactic Acid Level 1.8 mmol/L (0.4-2.0) Troponin I 1.550 ng/ml (0-0.045) Test 04/07/17 05:24 White Blood Count 10.68 K/uL (4.8-10.8) Red Blood Count 3.75 M/uL (4.2-5.4) Hemoglobin 9.5 g/dL (12.0-16.0) Hematocrit 29.8 % (37-47) Mean Corpuscular Volume 79.5 fL (80-100) Mean Corpuscular Hemoglobin 25.3 pg (25-34) Mean Corpuscular Hemoglobin Concent 31.9 g/dl (32-36) RDW Standard Deviation 46.9 fL (36.4-46.3) RDW Coefficient of Variation 16.1 % (11.5-14.5) Platelet Count 147 K/uL (130-400) Mean Platelet Volume 10.7 fL (7.4-10.4) Sodium Level 143 mmol/L (136-145) Potassium Level 3.7 mmol/L (3.5-5.1) Chloride Level 110 mmol/L (98-107) Carbon Dioxide Level 23 mmol/L (21-32) Anion Gap 10.0 mmol/L (3-11) Blood Urea Nitrogen 61 mg/dl (7-18) Creatinine 1.80 mg/dl (0.60-1.20) Est Creatinine Clear Calc Drug Dose 22.0 ml/min Estimated GFR () 29.0 Estimated GFR (Non- 25.0 BUN/Creatinine Ratio 33.6 (10-20) Random Glucose 89 mg/dl (70-99) Calcium Level 7.9 mg/dl (8.5-10.1) Phosphorus Level 5.0 mg/dl (2.5-4.9) Magnesium Level 2.2 mg/dl (1.8-2.4) Procalcitonin 67.30 ng/ml (0-0.5) Micro Results: Item Value Date Time Blood Culture - Preliminary Resulted 04/05/17 1021 Blood NO GROWTH TO DATE. Blood Culture - Preliminary Resulted 04/05/17 1055 Blood NO GROWTH TO DATE. MRSA DNA Surveillance Screen - Final Complete 04/05/17 1154 Nasal Specimen Negative for MRSA by DNA Probe Assessment & Plan Assessment: 04/05/17 * 87 y/o admitted to the ICU and started on Vancomycin, Zosyn, and Levaquin for sepsis secondary to pneumonia * procalcitonin >100, Lactic Acid > 5, WBC below lower limit of normal, and febrile 04/06/17 * ABX changed to Rocephin and Levaquin for CAP (Vancomycin and Zosyn discontinued) * Lactic Acid now WNL, WBC closer to WNL, afebrile 04/07/17 * Decompensating overnight, re-start Vancomycin in addition to Rocephin and Levaquin * questionable endocarditis secondary to atypical anatomy * Procal decreasing, WBC at upper end of normal, afebrile Plan: Broad-spectrum ABX with vancomycin, Rocephin, and Levaquin: Vancomycin: * Vancomycin 1500mg (~20mg/kg) IV x1 dose * Random vancomycin level with AM labs on 04/08/17 * dose per random as SCr changing rapidly since admission (est half life >24 hours) Rocephin: * Increase to 2000mg IV q12 hours since the potential for endocarditis exists * Renal adjustment not needed Levaquin: * Target dose = 750mg IV q24 hours * Dose adjust for CrCl 20-50mL/min to 750mg IV every 48 hours Pharmacy will continue to follow and will adjust dose/frequency as necessary. Thank you
--- NOTE | 2017-04-07 19:03 | Progress Note ---
Medicine Progress Note Date & Time of Visit: Apr 07, 2017 at 18:56. Subjective Pt was seen and examined On comfort measure only spoke to nephew who is POA and updated about pt hospital course Pt is resting comfortable Objective Last 8 Hrs Date Time Temp Pulse Resp B/P (MAP) Pulse Ox O2 Delivery O2 Flow Rate FiO2 04/07/17 14:15 98 32 04/07/17 12:00 Room Air 04/07/17 11:21 78 26 81 Nasal Cannula 50.0 97 04/07/17 11:02 82 23 125/56 (79) 81 Physical Exam: General- sleeping on comfort measure Head- atraumatic Eyes- PERRL, EOMI ENT- oropharynx clear Neck- supple, no JVD Lungs- Coarse BS, tachypneic Abdomen- normal bowel sounds, soft Skin- warm & dry Laboratory Results: Last 24 Hours Test 04/06/17 20:00 04/07/17 05:24 Bedside Glucose 136 mg/dl White Blood Count 10.68 K/uL Red Blood Count 3.75 M/uL Hemoglobin 9.5 g/dL Hematocrit 29.8 % Mean Corpuscular Volume 79.5 fL Mean Corpuscular Hemoglobin 25.3 pg Mean Corpuscular Hemoglobin Concent 31.9 g/dl RDW Standard Deviation 46.9 fL RDW Coefficient of Variation 16.1 % Platelet Count 147 K/uL Mean Platelet Volume 10.7 fL Sodium Level 143 mmol/L Potassium Level 3.7 mmol/L Chloride Level 110 mmol/L Carbon Dioxide Level 23 mmol/L Anion Gap 10.0 mmol/L Blood Urea Nitrogen 61 mg/dl Creatinine 1.80 mg/dl Est Creatinine Clear Calc Drug Dose 22.0 ml/min Estimated GFR () 29.0 Estimated GFR (Non- 25.0 BUN/Creatinine Ratio 33.6 Random Glucose 89 mg/dl Calcium Level 7.9 mg/dl Phosphorus Level 5.0 mg/dl Magnesium Level 2.2 mg/dl Procalcitonin 67.30 ng/ml Assessment & Plan SEPSIS/SEPTIC SHOCK Secondary with B/L pneumonia Presented on admission with elevated lactic acid, hypoxia and hypotension Received 2 L NS in the ER Was started to IV Levophed that was changed to phenylephrine to keep MAP above 65 Received IV Zosyn, Levofloxacin, Vancomycin in ED. Abx de-escalated to Levaquin and Rocephin Lactic acid trending down Blood culture pending Tilt Wall Supervisor on board Continue phenylephrine drip Continue monitor in the ICU 04/07/17 Code status changed to comfort measure only D/C pressors ACUTE HYPOXIC RESPIRATORY FAILURE Secondary to B/L pneumonia On BIPAP pipe chipper on board. 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 Presented with creatinine of 3.20 creatine improved to 2.4 Continue monitor BMP avoid nephrotoxic agents ELEVATED TROPONIN Likely demand ischemia due to septic shock/ hypovolemia and elevated creatine Denies any chest pain EKG showed no ischemic changes Continue aspirin Comfort measures only ECHO showed: * The left ventricle is normal in size. * There is moderate to severe global hypokinesis of the left ventricle. * The LV Ejection Fraction = 25-30%. * The right ventricle is normal in size and function. * The aortic valve is trileaflet. * Mild aortic regurgitation. * The non coronary cusp of the aortic valve is thickened and calcified with resultant decreased excursion. Appearance favors sclerosis/ calcification however the presence of a vegetation cannot be excluded. SYSTOLIC DYSFUNCTION ECHO showed severe global hypokinesis of LV with EF 25-30% Possible related to septic shock Will monitor for volume overload continue monitor in the ICU Comfort measures only HYPOMAGNESEMIA Mg replaced continue monitor electrolytes HTN- On pressors Continue holding Atenolol/Chlorthalidone, Ramipril Pressor d/c because code status was change to comfort measure only HX OF BREAST CARCINOMA S/P MASTECTOMY In remission DYSLIPIDEMIA Hold Statin DVT Px on heparin subq CODE STATUS DNR DISPOSITION Comfort measure only Will Transfer to medical floor
--- NOTE | 2017-04-11 18:59 | Discharge Summary ---
Discharge Summary Date of Service Apr 11, 2017. 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 The tip projects over the right atrium. The heart is enlarged. There are persistent right lower lobe airspace opacities suspicious for a pneumonia. There are progressive left lower lobe airspace opacities. There is diffuse haziness the right hemithorax, possibly secondary to a posterior layering pleural effusion. There is a small left pleural effusion.[ IMPRESSION: 1. Interval insertion of a right-sided PICC catheter 2. Persistent right basal consolidation. Developing left basilar consolidation. 3. Suspected bilateral pleural effusions. Electronically signed by: Demarcus Freitas M.D. 04/07/2017 7:11 AM Dictated Date/Time: 04/07/2017 7:09 AM Interpretation Summary * Name: EDILBERTO DUFF Study Date: 04/05/2017 03:16 PM BP: 119/60 mmHg * Patient Location: [facility] HR: 73 * : 1930 (M/d/yyyy) Gender: Female Height: 64 in * Age: 87 yrs Ethnicity: MS Weight: 164 lb * Ordering Physician: Sydni Bui. * Performed By: Cira Mercado * * Reason For Study: SEPTIC SHOCK/ ELEVATED TROP * BSA: 1.8 m2 * The study was technically adequate. * -- Conclusions -- * There is no prior study available for comparison. * The left ventricle is normal in size. * There is moderate to severe global hypokinesis of the left ventricle. * The LV Ejection Fraction = 25-30%. * The right ventricle is normal in size and function. * The aortic valve is trileaflet. * Mild aortic regurgitation. * The non coronary cusp of the aortic valve is thickened and calcified with resultant decreased excursion. Appearance favors sclerosis/ calcification however the presence of a vegetation cannot be excluded. * Recommend clinical correlation regarding suspected source of sepsis. * Results were reviewed in person with Dr Montes De Oca on 04/05/17 4:45 pm. Procedure Details * A complete two-dimensional transthoracic echocardiogram was performed (2D, M- mode, Doppler and color flow Doppler). * There were technical limitations due to patient'ssupine positioning while on mechanical ventilation Left Ventricle * The left ventricle is normal in size. * There is mild concentric left ventricular hypertrophy. * Left ventricular systolic function is moderate to severely reduced. * Ejection Fraction = 25-30%. * There is moderate to severe global hypokinesis of the left ventricle. Right Ventricle * The right ventricle is normal in size and function. * The right ventricular systolic function is normal as assessed by tricuspid annular plane systolic excursion (TAPSE) (normal >1.5 cm). Atria * The left atrial size is normal. * Right atrial size is normal. * There is no evidence of atrial septal defect, but resolution does not allow assessment for a patent foramen ovale. Mitral Valve * The mitral valve is normal. * There is no mitral valve stenosis. * There is mild mitral regurgitation. Tricuspid Valve * The tricuspid valve is normal. * There is no tricuspid stenosis. * There is mild tricuspid regurgitation. * Doppler findings do not suggest pulmonary hypertension. Aortic Valve * The aortic valve is trileaflet. * Aortic valve sclerosis moderate, without significant aortic valvular stenosis. * The non coronary cusp of the aortic valve is thickened and calcified with resultant decreased excursion. Appearance favors sclerosis/ calcification however the presence of a vegetation cannot be excluded. * Aortic stenosis is absent. * Mild aortic regurgitation. Pulmonic Valve * The pulmonary valve is not well seen, but the Doppler examination is normal without significant regurgitation or stenosis. Great Vessels * The aortic root and proximal ascending aorta are normal sized. Pericardium/Pleural * There is no pericardial effusion. Great Vessels * Normal inferior vena cava diameter and respiratory variation suggests normal central venous pressure. Left Ventricular Diastolic Function * Grade I diastolic dysfunction, (abnormal relaxation pattern). Admission Information HPI (per Admitting provider): The patient is a 87 year old female with PMH as below, who presents to the Emergency Room with c/o worsening cough/SOB x 24 hours. Patient at her baseline- lives alone, does ADLs independently, walks without assistive device, drives. Was diagnosed with pneumonia 1 month ago, for which she was treated with antibiotics x 10 days. Symptoms did not improve much, especially cough-unable to bring up sputum. Yesterday she was out with her cousin for shopping, when she felt excessive shaking and tired. Had to come back home -didnt eat much, had a difficult night. Today AM family went to visit her- was not doing well- SOB +, thus brought her to ER. Did have some chest pain yesterday. No leg swelling, fever documented, abdominal pain, vomiting, diarrhea, nausea, burning mictuirtion, urinary frequency, headaches, localized weakness. In ED, she was in respiratory distress. EMS gave duoneb x 2 with no improvement in SOB. SaO2 80% and her fingers were blue per EMS. Placed on CPAP, received IV solumedrol 125 mg IM. Currently on my evaluation, BIPAP + 93% SaO2, awake and able to communicate. BP 75/51, Pulse - 81, Temp 38.2, Lactic acid 5.5, Anion gap 15, Creatinine 3.20, Trop 0.2. CXR- B/L Right > left lower lobe pneumonia. Receiving 2nd litre of IV NS, on IV Levophed. Received IV Zosyn, receiving IV Vancomycin, Levofloxacin. Will admit her to ICU for sepsis/septic shock secondary to B/L Pneumonia . Physical Exam (per Admitting): General Appearance: + mild distress (on BIPAP) Head: normocephalic, atraumatic Eyes: PERRL ENT: hearing grossly normal Neck: no JVD Respiratory/Chest: chest non-tender, no accessory muscle use, + respiratory distress, + decreased breath sounds, + rhonchi, + pertinent finding (s/p mastectomy) Cardiovascular: regular rate, rhythm, no edema, no murmur Abdomen/GI: normal bowel sounds, non tender, soft, no pulsatile mass Extremities/Musculoskelatal: normal inspection, no pedal edema Neurologic/Psych: no motor/sensory deficits, + pertinent finding (awake, oriented x 2, ) Hospital Course SEPSIS/SEPTIC SHOCK Secondary with B/L pneumonia Presented on admission with elevated lactic acid, hypoxia and hypotension Received 2 L NS in the ER Was started to IV Levophed that was changed to phenylephrine to keep MAP above 65 Received IV Zosyn, Levofloxacin, Vancomycin in ED. Abx de-escalated to Levaquin and Rocephin Lactic acid trending down Blood culture pending [employer] on board Continue phenylephrine drip Continue monitor in the ICU 04/07/17 Code status changed to comfort measure only D/C pressors ACUTE HYPOXIC RESPIRATORY FAILURE Secondary to B/L pneumonia On BIPAP scallop raker on board. 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 Presented with creatinine of 3.20 creatine improved to 2.4 Continue monitor BMP avoid nephrotoxic agents ELEVATED TROPONIN Likely demand ischemia due to septic shock/ hypovolemia and elevated creatine Denies any chest pain EKG showed no ischemic changes Continue aspirin Comfort measures only ECHO showed: * The left ventricle is normal in size. * There is moderate to severe global hypokinesis of the left ventricle. * The LV Ejection Fraction = 25-30%. * The right ventricle is normal in size and function. * The aortic valve is trileaflet. * Mild aortic regurgitation. * The non coronary cusp of the aortic valve is thickened and calcified with resultant decreased excursion. Appearance favors sclerosis/ calcification however the presence of a vegetation cannot be excluded. SYSTOLIC DYSFUNCTION ECHO showed severe global hypokinesis of LV with EF 25-30% Possible related to septic shock Will monitor for volume overload continue monitor in the ICU Comfort measures only HYPOMAGNESEMIA Mg replaced continue monitor electrolytes HTN- On pressors Continue holding Atenolol/Chlorthalidone, Ramipril Pressor d/c because code status was change to comfort measure only HX OF BREAST CARCINOMA S/P MASTECTOMY In remission DYSLIPIDEMIA Hold Statin DVT Px on heparin subq CODE STATUS DNR DISPOSITION Comfort measure only Will Transfer to medical floor Total time spent on discharge = 15 MINUTES This includes examination of the patient, discharge planning, medication reconciliation, and communication with other providers. Discharge Instructions Patient was made comfort measures only and a few hours later. Additional Copies To Minh Zhang M.D.
== END 2017-04-07 17:45 | disposition expired | DRG 871 ==
LOC: EDBD 10:12 → C.EDB 10:14 → C.MSICU 11:30 → ENRESERV 11:47 → CANBEDREQ 04-07 16:09 → ENRESERV 04-07 16:11
PROVIDERS: ADMIT Internal Medicine; ATTEND Internal Medicine
PROC: 02H633Z Insertion of Infusion Device into Right Atrium, Percutaneous Approach (ICD-10-PCS; principal; 2017-04-05)
DX: A41.9 Sepsis, unspecified organism (principal); J18.9 Pneumonia, unspecified organism; J96.01 Acute respiratory failure with hypoxia; J96.02 Acute respiratory failure with hypercapnia; R65.21 Severe sepsis with septic shock; I42.8 Other cardiomyopathies; N17.9 Acute kidney failure, unspecified; I24.8 Other forms of acute ischemic heart disease; I13.0 Hypertensive heart and chronic kidney disease with heart failure and stage 1 through stage 4 chronic kidney disease, or unspecified chronic kidney disease; E83.42 Hypomagnesemia; E86.1 Hypovolemia; I51.9 Heart disease, unspecified; N18.9 Chronic kidney disease, unspecified; I35.0 Nonrheumatic aortic (valve) stenosis; E78.5 Hyperlipidemia, unspecified; Z51.5 Encounter for palliative care; Z66 Do not resuscitate; Z90.10 Acquired absence of unspecified breast and nipple; Z85.3 Personal history of malignant neoplasm of breast; Z79.82 Long term (current) use of aspirin; Z79.899 Other long term (current) drug therapy